=== PATIENT | female | born 1930 | race Hispanic/Latino ===

== ENCOUNTER 2019-05-12 10:11 | Inpatient (IN) | payer MEDICARE ==
[2019-05-12 11:21] LABS: Basophils # (Auto) 0.1 K/mm3 (0.0-0.1); Basophils % (Auto) 0.7 % (0.0-1.8); Eosinophils # (Auto) 0.1 K/mm3 (0.0-0.4); Eosinophils % (Auto) 1.2 % (0.0-4.3); Hematocrit 32.7 % (30.3-42.9); Hemoglobin 11.2 gm/dl (10.1-14.3); Lymphocytes # (Auto) 1.7 K/mm3 (1.2-5.4); Lymphocytes % (Auto) 16.4 % (13.4-35.0); Mean Corpuscular HGB Conc 34 % (30-34); Mean Corpuscular Volume 84 fl (79-97); Monocytes # (Auto) 0.5 K/mm3 (0.0-0.8); Monocytes % (Auto) 4.6 % (0.0-7.3); Platelet Count 263 K/mm3 (140-440); Red Cell Distribution Width 14.1 % (13.2-15.2)
--- NOTE | 2019-05-12 11:39 | Emergency Department Report ---
ED Abdominal Pain HPI - General Chief Complaint: Abdominal Pain Stated Complaint: SORENESS ON BUTTOCKS Time Seen by Provider: 05/12/19 10:52 Source: family, EMS Mode of arrival: Stretcher Limitations: Altered Mental Status - History of Present Illness Initial Comments: 88-year-old female with past medical history of dementia, hypertension, kidney stones requiring surgery, peptic ulcer disease, and chronic fecal incontinence with several months for this possible complaints buttock pain for 2 days. Patient is oriented to self and hospital but not to yaer. She is only able to provided a limited history of present illness. Her daughter/partial medical advisor is at the bedside. Patient has intermittent episodes of complaining of buttock pain but she can't verbalize any further details. By mouth intake reported since yesterday. No reports of vomiting or dysuria. Possible lower abdominal pain as well. Patient wears a diaper due to chronic fecal incontinence. - Related Data Home Medications Medication Instructions Recorded Confirmed Last Taken Benazepril HCl [Lotensin] 20 mg PO DAILY 01/02/18 01/02/18 01/01/18 09:00 Glimepiride [Amaryl] 4 mg PO QAM 01/02/18 01/02/18 01/01/18 09:00 Previous Rx's Medication Instructions Recorded Last Taken Type Acetaminophen [Acetaminophen TAB] 650 mg PO Q4H PRN tablet 01/05/18 Unknown Rx levoFLOXacin [Levaquin TAB] 500 mg PO QDAY #5 tablet 01/05/18 Unknown Rx Allergies Allergy/AdvReac Type Severity Reaction Status Date / Time No Known Allergies Allergy Verified 01/01/18 18:43 ED Review of Systems ROS: Stated complaint: SORENESS ON BUTTOCKS Other details as noted in HPI Comment: All other systems reviewed and negative ED Past Medical Hx - Past Medical History Hx Hypertension: Yes Hx Diabetes: Yes Hx Arthritis: Yes Hx Kidney Stones: Yes (X2 Surgeries) Hx Dementia: Yes Additional medical history: osteoporosis, peptic ulcer, prolapsed bladder - Surgical History Additional Surgical History: kidney stone surgery - Social History Smoking Status: Never Smoker Substance Use Type: None - Medications Home Medications: Home Medications Medication Instructions Recorded Confirmed Last Taken Type Benazepril HCl [Lotensin] 20 mg PO DAILY 01/02/18 01/02/18 01/01/18 09:00 Histo ry Glimepiride [Amaryl] 4 mg PO QAM 01/02/18 01/02/18 01/01/18 09:00 History Acetaminophen [Acetaminophen TAB] 650 mg PO Q4H PRN tablet 01/05/18 Unknown Rx levoFLOXacin [Levaquin TAB] 500 mg PO QDAY #5 tablet 01/05/18 Unknown Rx ED Physical Exam - General Limitations: Altered Mental Status - Other Other exam information: General: No limitations, patient is alert in no acute distress Head exam: Atraumatic, normocephalic Eyes exam: Normal appearance ENT: Moist mucous membrane, normal oropharynx Neck exam: Normal inspection, full range of motion, no meningismus nontender Respiratory exam: Clear to auscultation bilateral, no wheezes, rales, crackles Cardiovascular: Normal rate and rhythm Abdomen: Soft, nondistended, suprapubic tenderness on palpation with normal bowel sounds, no rebound, or guarding Rectal: Redness to buttock area without any skin break. Extremities hemorrhoids noted without any signs of thrombosis or active bleeding. Light brown stool noted in diaper without any melena or hematochezia. 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 ED Course Vital Signs 05/12/19 05/12/19 05/12/19 10:30 12:30 12:52 Temperature 98.7 F Pulse Rate 84 70 Respiratory 20 18 Rate Blood Pressure 180/66 225/79 O2 Sat by Pulse 94 97 Oximetry ED Medical Decision Making - Lab Data Result diagrams: 05/12/19 11:04 05/12/19 11:04 Lab Results 05/12/19 05/12/19 05/12/19 Range/Units 11:04 11:04 12:23 WBC 10.6 (4.5-11.0) K/mm3 RBC 3.90 (3.65-5.03) M/mm3 Hgb 11.2 (10.1-14.3) gm/dl Hct 32.7 (30.3-42.9) % MCV 84 (79-97) fl MCH 29 (28-32) pg MCHC 34 (30-34) % RDW 14.1 (13.2-15.2) % Plt Count 263 (140-440) K/mm3 Lymph % (Auto) 16.4 (13.4-35.0) % [place] % (Auto) 4.6 (0.0-7.3) % Eos % (Auto) 1.2 (0.0-4.3) % Baso % (Auto) 0.7 (0.0-1.8) % Lymph # 1.7 (1.2-5.4) K/mm3 [place] # 0.5 (0.0-0.8) K/mm3 Eos # 0.1 (0.0-0.4) K/mm3 Baso # 0.1 (0.0-0.1) K/mm3 Seg Neutrophils % 77.1 H (40.0-70.0) % Seg Neutrophils # 8.2 H (1.8-7.7) K/mm3 Sodium 137 (137-145) mmol/L Potassium 4.4 (3.6-5.0) mmol/L Chloride 101.6 (98-107) mmol/L Carbon Dioxide 22 (22-30) mmol/L Anion Gap 18 mmol/L BUN 25 H (7-17) mg/dL Creatinine 1.3 H (0.7-1.2) mg/dL Estimated GFR 39 ml/min BUN/Creatinine Ratio 19 % Glucose 234 H (65-100) mg/dL Calcium 9.2 (8.4-10.2) mg/dL Urine Color Red (Yellow) Urine Turbidity Cloudy (Clear) Urine pH 5.0 (5.0-7.0) Ur Specific [place] 1.012 (1.003-1.030) Urine Protein <15 mg/dl (Negative) mg/dL Urine Glucose (UA) 50 (Negative) mg/dL Urine Ketones Neg (Negative) mg/dL Urine Blood Neg (Negative) Urine Nitrite Neg (Negative) Urine Bilirubin Neg (Negative) Urine Urobilinogen < 2.0 (<2.0) mg/dL Ur Leukocyte Esterase Lg (Negative) Urine WBC (Auto) 25.0 H (0.0-6.0) /HPF Urine RBC (Auto) 5.0 (0.0-6.0) /HPF U Epithel Cells (Auto) 1.0 (0-13.0) /HPF Urine Bacteria (Auto) 4+ (Negative) /HPF Urine Mucus 2+ /HPF Urine Yeast (Budding) 1+ /HPF - Radiology Data Radiology results: report reviewed PROCEDURE: CT ABDOMEN PELVIS WO CON TECHNIQUE: CT of the abdomen and pelvis was performed. No IV contrast administered. No oral contrast administered. Axial images and coronal and sagittal reformatted images were obtained. HISTORY: lower abd pain COMPARISON: 09/25/2013 FINDINGS: There are coronary artery calcifications. There is cholelithiasis. There is a 1.7 cm right renal cyst. There are prominent renal pelves, especially on the right. This is unchanged and can reflect chronic UPJ obstruction. 1.4 cm low-density lesion in the right kidney is probably a small cyst but not definitively characterized on noncontrast imaging. There are aortoiliac atherosclerotic calcifications. There is no abdominal aortic aneurysm. There is no evidence for intestinal obstruction. The appendix is normal. There is no abnormal fluid collection seen. There is no free intraperitoneal air. There is mild diverticulosis involving sigmoid colon. There is no acute diverticulitis seen. The bladder is very distended and demonstrates trabeculated margins. This is unchanged. There is stool distending the rectum to 8 cm diameter. I cannot exclude fecal im paction. IMPRESSION: Cholelithiasis. Unchanged prominent renal pelves, especially on the right. This could reflect chronic UPJ obstruction. Distended bladder with trabeculated margins. This is unchanged. Correlate for chronic bladder dysfunction or outlet obstruction. Mild diverticulosis. No acute diverticulitis. Unchanged L3, T10 and T11 mild compression compression deformities. Coronary and aortic atherosclerotic calcifications. - Medical Decision Making ED workup significant for UTI. Patient treated with IV Rocephin. Culture pending. Hospitalist informed permission. Patient's BP was elevated. She did not have her a.m. meds. She did receive Colace 0.1 milligrams - Differential Diagnosis diverticulitis, UTI, dementia, decubitus ulcer, dehydration Critical Care Time: No Critical care attestation.: If time is entered above; I have spent that time in minutes in the direct care of this critically ill patient, excluding procedure time. ED Disposition Clinical Impression: UTI (lower urinary tract infection), Dementia, HTN (hypertension), Diabetes Disposition: OP ADMIT IP TO THIS HOSP Is pt being admited?: Yes Condition: Stable Time of Disposition: 13:26 (Dr briceño/hosp)
[2019-05-12 11:45] LABS: Calcium 9.2 mg/dL (8.4-10.2)
[2019-05-12] MEDS ORDERED: TYLENOL PO ONE (12:36)
[2019-05-12] MEDS ORDERED: CATAPRES PO ONE (12:38)
[2019-05-12 12:51] LABS: Bacteria,Urine 4+ /HPF (Negative); Bilirubin,Urine NEG (Negative); Blood,Urine NEG (Negative); Color,Urine Red (Yellow); Mucus,Urine 2+ /HPF; Protein,Urine <15 mg/dL mg/dL (Negative); Urobilinogen,Urine < 2.0 mg/dL (<2.0)
[2019-05-12] MEDS ORDERED: ROCEPHIN/NS 1 GM/50 ML 1 GM/50 ML BAG IV ONE (12:59)
--- NOTE | 2019-05-12 13:16 | History and Physical Report ---
History of Present Illness Chief complaint: She is weak, and getting more confused History of present illness: 88 YO Female with DM, HTN, PUD, Dementia, Osteoporosis, Nephrolithiasis, OA, Fecal Incontinence presents to ED for evaluation. Pt is confused and unable to provide detailed history. Pt history provided by Daughter, and brother who are at bedside during exam and interview. As per family the patient has experienced increased confusion, and weakness over the past 1 week with persistent symptoms over the same time frame. Pt has become increasingly dependent and is currently unable to independently conduct activities of daily living. Pt requires 5/6 assistance, and is incontinent of bowel and bladder and increased bedbound status with development of sacral DTI. EMS notified and the patient transported to [facility]. Pt seen and evaluated in ED and found to have UTI, ARF, Volume Depletion, and constipation. Pt also found to have Hypertensive Urgency suspected secondary to noncompliance with antihypertensive therapy. No reports of fever, chills, CP, Palpitations, Trauma, BRBPR, Falls, Syncope, Productive co ugh, or recent ill contacts. Pt admitted to [facility] unit and initiated on Iv antibiotic therapy, as well as IVF resuscitation therapy. Prior admission on 01/02/18 reviewed. 35 minutes dedicated to Advance Care planning discussion with patient and family. Past History Past Medical History: arthritis, diabetes, hypertension, other (PUD, Osteoporosis, Nephrolithiasis) Past Surgical History: Other (Renal Stones) Social history: , lives with family. denies: smoking, alcohol abuse, prescription drug abuse Family history: diabetes, hypertension Medications and Allergies Allergies Allergy/AdvReac Type Severity Reaction Status Date / Time No Known Allergies Allergy Verified 01/01/18 18:43 Home Medications Medication Instructions Recorded Confirmed Last Taken Type Benazepril HCl [Lotensin] 20 mg PO DAILY 01/02/18 01/02/18 01/01/18 09:00 History Glimepiride [Amaryl] 4 mg PO QAM 01/02/18 01/02/18 01/01/18 09:00 History Acetaminophen [Acetaminophen TAB] 650 mg PO Q4H PRN tablet 01/05/18 Unknown Rx levoFLOXacin [Levaquin TAB] 500 mg PO QDAY #5 tablet 01/05/18 Unknown Rx Active Meds: Active Medications Ceftriaxone Sodium (Rocephin/Ns 1 Gm/50 Ml) 1 gm in 50 mls @ 100 mls/hr IV ONCE ONE; Protocol Stop: 05/12/19 13:28 Review of Systems ROS unobtainable: due to mental status Exam - Constitutional Vitals: Temp Pulse Resp BP Pulse Ox 98.7 F 70 18 225/79 97 05/12/19 10:30 05/12/19 12:52 05/12/19 12:30 05/12/19 12:52 05/12/19 12:30 General appearance: Present: mild distress, well-nourished - EENT Eyes: Present: PERRL ENT: hearing intact, clear oral mucosa - Neck Neck: Present: supple, normal ROM - Respiratory Respiratory effort: normal Respiratory: bilateral: CTA - Cardiovascular Heart Sounds: Present: S1 & S2. Absent: rub, click - Extremities Extremities: pulses symmetrical, No edema Peripheral Pulses: within normal limits - Abdominal General gastrointestinal: Present: soft, non-tender, non-distended, normal bowel sounds Female genitourinary: Present: normal - Integumentary Integumentary: Present: warm, erythema (Sacral erythema, with mild excoriation.) - Musculoskeletal Musculoskeletal: strength equal bilaterally, generalized weakness - Psychiatric Psychiatric: no appropriate mood/affect, no intact judgment & insight, no memory intact, cooperative, other (pleasantly confused, tangential thinking) - Neurologic Neurologic: CNII-XII intact, moves all extremities Results - Labs CBC & Chem 7: 05/12/19 11:04 05/12/19 11:04 Labs: Abnormal lab results 05/12/19 05/12/19 05/12/19 Range/Units 11:04 11:04 12:23 Seg Neutrophils % 77.1 H (40.0-70.0) % Seg Neutrophils # 8.2 H (1.8-7.7) K/mm3 BUN 25 H (7-17) mg/dL Creatinine 1.3 H (0.7-1.2) mg/dL Glucose 234 H (65-100) mg/dL Urine WBC (Auto) 25.0 H (0.0-6.0) /HPF Assessment and Plan - Patient Problems (1) UTI (lower urinary tract infection) Current Visit: Yes Status: Acute Plan to address problem: Iv antibiotic therapy, CBC, Urinalysis, (2) ARF (acute renal failure) with tubular necrosis Current Visit: Yes Status: Acute Plan to address problem: IVF resuscitation, monitor uop q shift, monitor serum creatnine, urine electrolytes, (3) Debility Current Visit: Yes Status: Acute Plan to address problem: supportive care, Home health at discharge,bedside commode, shower chair, and hospital bed upon discharge, (4) Advance care planning Current Visit: Yes Status: Acute Plan to address problem: Discussed progression of dementia, end of life planning, hospice care, and supportive care plan. 30 minutes. (5) Dementia Current Visit: Yes Status: Acute Qualifiers: Dementia type: Alzheimer's disease Dementia behavioral disturbance: without behavioral disturbance Plan to address problem: supportive care, fall precautions, neuro checks: POA (6) Diabetes Current Visit: Yes Status: Acute Plan to address problem: ADA diet, insulin, accu check, hypoglycemia protocol. (7) Dehydration Current Visit: No Status: Acute Plan to address problem: IVF resuscitation therapy, encourage increased free water intake. (8) Hypertensive urgency, malignant Current Visit: Yes Status: Acute Plan to address problem: Monitor BP q shift, IV hydralazine prn, goal systolic 130-155 (9) Osteoarthritis Current Visit: Yes Status: Acute Plan to address problem: Pain control, supportive care:POA (10) DVT prophylaxis Current Visit: Yes Status: Acute Plan to address problem: SCD to BLE while in bed, prophylactic heparin
[2019-05-12] MEDS ORDERED: TYLENOL PO PRN ×2 (13:18→13:26)
--- NOTE | 2019-05-12 13:21 | Cat Scan Report ---
PROCEDURE: CT ABDOMEN PELVIS WO CON TECHNIQUE: CT of the abdomen and pelvis was performed. No IV contrast administered. No oral contrast administered. Axial images and coronal and sagittal reformatted images were obtained. HISTORY: lower abd pain COMPARISON: 09/25/2013 FINDINGS: There are coronary artery calcifications. There is cholelithiasis. There is a 1.7 cm right renal cyst. There are prominent renal pelves, especially on the right. This is unchanged and can reflect chronic UPJ obstruction. 1.4 cm low-density lesion in the right kidney is probably a small cyst but not definitively character ized on noncontrast imaging. There are aortoiliac atherosclerotic calcifications. There is no abdominal aortic aneurysm. There is no evidence for intestinal obstruction. The appendix is normal. There is no abnormal fluid collection seen. There is no free intraperitoneal air. There is mild diverticulosis involving sigmoid colon. There is no acute diverticulitis seen. The bladder is very distended and demonstrates trabeculated margins. This is unchanged. There is stool distending the rectum to 8 cm diameter. I cannot exclude fecal impaction. IMPRESSION: Cholelithiasis. Unchanged prominent renal pelves, especially on the right. This could reflect chronic UPJ obstruction . Distended bladder with trabeculated margins. This is unchanged. Correlate for chronic bladder dysfunc tion or outlet obstruction. Mild diverticulosis. No acute diverticulitis. Unchanged L3, T10 and T11 mild compression compression deformities. Coronary and aortic atherosclerotic calcifications. This document is electronically signed by Brenda Montanez MD., May 12 2019 01:19:07 PM ET
[2019-05-12] MEDS ORDERED: SODIUM CHLORIDE FLUSH SYRINGE 10 ML IV PRN (13:26)
[2019-05-12] MEDS ORDERED: ZOFRAN IV PRN (13:26)
[2019-05-12] MEDS ORDERED: PROVENTIL IH PRN (13:26)
[2019-05-12] MEDS ORDERED: APRESOLINE IV PRN (13:29)
[2019-05-12] MEDS ORDERED: FLEET MINERAL OIL PR ONE (15:00)
[2019-05-12] MEDS: SODIUM CHLORIDE FLUSH SYRINGE 10 ML IV SCH (21:24)
[2019-05-12] MEDS: NACL 0.45% 1000 ML 1,000 ML IV SCH (21:24)
[2019-05-12] MEDS: SENOKOT S PO SCH (21:24)
[2019-05-13] MEDS ORDERED: FLEET MINERAL OIL PR NR (09:36)
[2019-05-13] MEDS ORDERED: NON-FORMULARY (Benazepril Hcl [Lotensin] 20 MG) PO SCH (10:00)
[2019-05-13] MEDS ORDERED: DULCOLAX PR PRN (10:20)
[2019-05-13] MEDS: ROCEPHIN/NS 1 GM/50 ML 1 GM/50 ML BAG IV SCH (10:43)
[2019-05-13] MEDS: SODIUM CHLORIDE FLUSH SYRINGE 10 ML IV SCH ×2 (10:44→22:59)
[2019-05-13] MEDS: ZESTRIL PO SCH (10:45)
[2019-05-13] MEDS: HumaLOG SUB-Q SCH ×3 (12:33→23:05)
--- NOTE | 2019-05-13 15:11 | Progress Note ---
Assessment and Plan Assessment and plan: 88 YO Female with DM, HTN, PUD, Dementia, Osteoporosis, Nephrolithiasis, OA, Fecal Incontinence presents to ED for evaluation. Pt is confused and unable to provide detailed history. Pt history provided by Daughter, and brother who are at bedside during exam and interview. As per family the patient has experienced increased confusion, and weakness over the past 1 week with persistent symptoms over the same time frame. Pt has become increasingly dependent and is currently unable to independently conduct activities of daily living. Pt requires 5/6 assistance, and is incontinent of bowel and bladder and increased bedbound status with development of sacral DTI. * Pt seen and evaluated in ED and found to have UTI, ARF, Volume Depletion, and constipation. Pt also found to have Hypertensive Urgency suspected secondary to noncompliance with antihypertensive therapy. Although on further discussion with family, this could be secondary to RECTAL PAIN FROM SEVERE CONSTIPATION * Pt admitted to [facility] unit and initiated on Iv antibiotic therapy, as well as IVF resuscitation therapy. Acute Cystitis Hypertensive urgency secondary to abdominal pain Abdominal pain/Acute peritoneal irritation secondary to severe constipation Dementia- Presume baseline per family member present today Severe Constipation Chronic debility Diabetes mellitus type 2 with hyperglycemia Dehydration Osteoarthritis Plan * Continue supportive care with stool disimpaction * Stool softeners * Resume home medications * Gentle hydration * Discussed with family about increasing fiber and also oral fluid intake * On discharge patient will need suppositories and stool softeners prescription * Monitor blood sugar while in house * Fall and aspiration precautions * DVT and GI prophylaxis * Despite discharge in 24 hours History Interval history: Patient seen and examined, family at bedside and reports patient has been battling with constipation for a few weeks now. This has resulted in her develo ping significant pain when going to the bathroom and probably have led to elevated blood pressure on visitation to the ED. Hospitalist Physical - Physical exam Narrative exam: VITAL SIGNS: Reviewed. GENERAL: The patient appeared well nourished and normally developed, Vital signs as documented. HEAD: No signs of head trauma. EYES: Pupils are equal. Extraocular motions intact. EARS: Hearing grossly intact. MOUTH: Oropharynx is normal. NECK: No adenopathy, no JVD. CHEST: Chest with clear breath sounds bilaterally. No wheezes, rales, or rhonchi. CARDIAC: Regular rate and rhythm. S1 and S2, without murmurs, gallops, or rubs. VASCULAR: No Edema. Peripheral pulses normal and equal in all extremities. ABDOMEN: Soft, non tender and non distended. No rebound or guarding, and no masses palpated. Bowel Sounds normal. MUSCULOSKELETAL: Good range of motion of all major joints. Extremities without clubbing, cyanosis or edema. NEUROLOGIC EXAM: Alert and oriented x 2, pleasantly confused and at baseline dementia. No focal sensory or strength deficits. Speech normal. Follows commands. PSYCHIATRIC: Mood normal. SKIN: Sacral erythema, with mild excoriation - Constitutional Vitals: Temp Pulse Resp BP Pulse Ox 97.5 F L 72 18 127/46 91 05/13/19 12:54 05/13/19 12:54 05/13/19 12:54 05/13/19 12:54 05/13/19 12:54 General appearance: Present: mild distress, well-nourished Results - Labs CBC & Chem 7: 05/12/19 11:04 05/12/19 11:04 Labs: Laboratory Last Values WBC 10.6 K/mm3 (4.5-11.0) 05/12/19 11:04 RBC 3.90 M/mm3 (3.65-5.03) 05/12/19 11:04 Hgb 11.2 gm/dl (10.1-14.3) 05/12/19 11:04 Hct 32.7 % (30.3-42.9) 05/12/19 11:04 MCV 84 fl (79-97) 05/12/19 11:04 MCH 29 pg (28-32) 05/12/19 11:04 MCHC 34 % (30-34) 05/12/19 11:04 RDW 14.1 % (13.2-15.2) 05/12/19 11:04 Plt Count 263 K/mm3 (140-440) 05/12/19 11:04 Lymph % (Auto) 16.4 % (13.4-35.0) 05/12/19 11:04 [place] % (Auto) 4.6 % (0.0-7.3) 05/12/19 11:04 Eos % (Auto) 1.2 % (0.0-4.3) 05/12/19 11:04 Baso % (Auto) 0.7 % (0.0-1.8) 05/12/19 11:04 Lymph # 1.7 K/mm3 (1.2-5.4) 05/12/19 11:04 [place] # 0.5 K/mm3 (0.0-0.8) 05/12/19 11:04 Eos # 0.1 K/mm3 (0.0-0.4) 05/12/19 11:04 Baso # 0.1 K/mm3 (0.0-0.1) 05/12/19 11:04 Seg Neutrophils % 77.1 % (40.0-70.0) H 05/12/19 11:04 Seg Neutrophils # 8.2 K/mm3 (1.8-7.7) H 05/12/19 11:04 Sodium 137 mmol/L (137-145) 05/12/19 11:04 Potassium 4.4 mmol/L (3.6-5.0) 05/12/19 11:04 Chloride 101.6 mmol/L (98-107) 05/12/19 11:04 Carbon Dioxide 22 mmol/L (22-30) 05/12/19 11:04 18 mmol/L 05/12/19 11:04 BUN 25 mg/dL (7-17) H 05/12/19 11:04 1.3 mg/dL (0.7-1.2) H 05/12/19 11:04 Estimated GFR 39 ml/min 05/12/19 11:04 19 % 05/12/19 11:04 Glucose 234 mg/dL (65-100) H 05/12/19 11:04 POC Glucose 235 (70-105) H 05/13/19 11:53 Calcium 9.2 mg/dL (8.4-10.2) 05/12/19 11:04 Red (Yellow) 05/12/19 12:23 Cloudy (Clear) 05/12/19 12:23 5.0 (5.0-7.0) 05/12/19 12:23 Ur Specific [place] 1.012 (1.003-1.030) 05/12/19 12:23 <15 mg/dl mg/dL (Negative) 05/12/19 12:23 50 mg/dL (Negative) 05/12/19 12:23 Neg mg/dL (Negative) 05/12/19 12:23 Neg (Negative) 05/12/19 12:23 Neg (Negative) 05/12/19 12:23 Neg (Negative) 05/12/19 12:23 < 2.0 mg/dL (<2.0) 05/12/19 12:23 Ur Leukocyte Esterase Lg (Negative) 05/12/19 12:23 25.0 /HPF (0.0-6.0) H 05/12/19 12:23 5.0 /HPF (0.0-6.0) 05/12/19 12:23 U Epithel Cells (Auto) 1.0 /HPF (0-13.0) 05/12/19 12:23 4+ /HPF (Negative) 05/12/19 12:23 2+ /HPF 05/12/19 12:23 1+ /HPF 05/12/19 12:23 Active Medications - Current Medications Current Medications: Generic Name Dose Route Start Last Admin Trade Name Freq PRN Reason Stop Dose Admin Acetaminophen 650 mg 05/12/19 13:26 Tylenol PO Q4H PRN Pain MILD(1-3)/Fever >100.5/[place]ARSON Albuterol 2.5 mg 05/12/19 13:26 Proventil IH Q4HRT PRN Shortness Of Breath Bisacodyl 10 mg 05/13/19 10:20 Dulcolax UT QDAY PRN Constipation Heparin Sodium (Porcine) 5,000 unit 05/13/19 22:00 Heparin SUB-Q Q12HR SHE[place] Hydralazine HCl 10 mg 05/12/19 13:29 Apresoline IV Q6HR PRN Hypertension Ceftriaxone Sodium 1 gm in 50 mls @ 100 mls/hr 05/13/19 10:00 05/13/19 10:43 Rocephin/Ns 1 Gm/50 Ml IV 100 mls/hr Q24HR [place] Administration Protocol Sodium Chloride 1,000 mls @ 42 mls/hr 05/12/19 14:00 05/12/19 21:24 Nacl 0.45% 1000 Ml IV 42 mls/hr DIRECT SHE[place] Administration Insulin Glargine 12 units 05/13/19 22:00 Lantus SUB-Q QHS SHE[place] Insulin Human Lispro 0 unit 05/13/19 12:26 05/13/19 12:33 Humalog SUB-Q 2 unit ACHS SHE[place]TON Administration Protocol Lisinopril 20 mg 05/13/19 10:00 05/13/19 10:45 Zestril PO 20 mg QDAY SHE[place] Administration Ondansetron HCl 4 mg 05/12/19 13:26 Zofran IV Q8H PRN Nausea And Vomiting Senna/Docusate Sodium 1 tab 05/12/19 22:00 05/12/19 21:24 Senokot S PO 1 tab QHS [place] Administration Sodium Chloride 10 ml 05/12/19 22:00 05/13/19 10:44 Sodium Chloride Flush Syringe 10 Ml IV 10 ml BID [place] Administration Sodium Chloride 10 ml 05/12/19 13:26 Sodium Chloride Flush Syringe 10 Ml IV PRN PRN LINE FLUSH Nutrition/Malnutrition Assess - Dietary Evaluation Nutrition/Malnutrition Findings: Nutrition Notes Start: 05/13/19 12:51 Freq: Status: Active Protocol: Document 05/13/19 12:51 OH (Rec: 05/13/19 13:05 OH [id number]) Nutrition Notes Need for Assessment generated from: MD Order Initial or Follow up Assessment Current Diagnosis Coronary Artery Disease, Diabetes,Hypertension Other Pertinent Diagnosis UTI/ARF/dementia/sacral DTI Current Diet Consistent CHO Labs/Tests K+ 4.4 Cr. 1.3 GLU 234 Ca 9.2 Pertinent Medications Humalog Height 5 ft Weight 71.3 kg [place] Body Weight (kg) 45.45 BMI 30.7 Intake Prior to Admission Fair Weight Status Overweight Subjective/Other Information MD consult. Pt. lying in bed with daughter by her bedside. Per daughter pt consumes soft/ mechanical soft foods due to few teeth. Pt. crying out in pain due to fecal impaction. Pt. consuming more liquids ( juice/milk) rather than food at this time per daughter. Percent of energy/protein needs met: 10/10% Burn Absent Trauma Absent GI Symptoms Constipation Difficulty In Chewing Food Allergy No Current % PO Negligible #1 Nutrition Diagnosis Inadequate oral intake Etiology constipation/fecal impaction/ dementia As Evidenced by Signs and Symptoms poor po intake Diagnosis Progress(for reassessment Continues documentation) Is patient on ventilator? No Is Patient Ambulatory and/or Out of Bed No REE-([place]-St. Jeor-confined to bed) 1284.996 Calculation Used for Recommendations [place]-St Jeor Additional Notes FLUID: 1 mL/kcal PROTEIN: 1-1.2 g/kg (IBW 46 KGS) 46- Nutrition Intervention Change Diet Order: Cont mechnical soft consistent CHO Add Supplement/Snack (indicate name/kcal GLUCERNA BID /protein ) Provides kCal: 440 Provides Protein (gm) 20 Goal #1 PO INTAKE TO TREND >75% at meals Goal #2 ONS initiated and tolerated Anticipated Discharge Needs: Unable to determine at this time Follow-Up By: 05/15/19 Additional Comments F/U po intake/tolerance to ONS
[2019-05-13] MEDS: NACL 0.45% 1000 ML 1,000 ML IV SCH (18:43)
[2019-05-13] MEDS ORDERED: LANTUS SUB-Q SCH (22:00)
[2019-05-13] MEDS: SENOKOT S PO SCH (22:58)
[2019-05-13] MEDS: HEPARIN SUB-Q SCH (22:59)
[2019-05-14] MEDS: HumaLOG SUB-Q SCH ×3 (07:30→16:45)
[2019-05-14 07:58] VITALS: BP 141/44
[2019-05-14] MEDS: ROCEPHIN/NS 1 GM/50 ML 1 GM/50 ML BAG IV SCH (10:03)
[2019-05-14] MEDS: ZESTRIL PO SCH (10:04)
[2019-05-14] MEDS: SODIUM CHLORIDE FLUSH SYRINGE 10 ML IV SCH (10:04)
[2019-05-14] MEDS: HEPARIN SUB-Q SCH (10:04)
--- NOTE | 2019-05-14 12:21 | Discharge Summary ---
Providers - Providers Date of Admission: 05/12/19 15:45 Date of discharge: 05/14/19 Attending physician: APRIL QUINTANILLA 05/12/19 14:02 Consult to Wound/ET Nurse [CONS] Routine Reason For Exam: wound eval 05/12/19 21:05 Consult to Dietitian/Nutrition [CONS] Routine Physician Instructions: Reason For Exam: Reason for Consult: Poor oral intake 05/14/19 09:20 Physical Therapy Evaluation and Treat [CONS] Routine Comment: Reason For Exam: Weakness Primary care physician: SHALA KUMAR Hospitalization Condition: Stable Hospital course: Patient is a 88 yo woman with a history of DM, HTN, PUD, Dementia, Osteoporosis, Nephrolithiasis, OA, Fecal Incontinence who presented to [facility] with increasing AMS/confusion, rectal pains. Pt requires max assistance, incontinent of bowel and bladder and increased bedbound status with development of sacral DTI. Pt seen and evaluated in ED and found to have UTI, ARF, Volume Depletion, and constipation. Pt also found to have Hypertensive Urgency suspected secondary to noncompliance with antihypertensive therapy. Although on further discussion with family, this could be secondary to RECTAL PAIN FROM SEVERE CONSTIPATION Discharge Diagnoses: Sacral Decubitis Ulcer, stage III, poa Functional quadriplegia, poa Acute metabolic encephalopathy, poa Acute Cystitis Hypertensive urgency secondary to abdominal pain Abdominal pain/Acute peritoneal irritation secondary to severe constipation Dementia- Presume baseline per family member present today Severe Constipation Chronic debility Diabetes mellitus type 2 with hyperglycemia Dehydration Osteoarthritis Disposition: DC/TX-06 HOME [facility] Time spent for discharge: 35 mintues Core Measure Documentation - Palliative Care Palliative Care/ Comfort Measures: Not Applicable - Core Measures Any of the following diagnoses?: none - VTE Discharge Requirements Deep Vein Thrombosis/Pulmonary Embolism Present on Admission: No Has pt received <5 days of overlap therapy or INR<2.0: No Anticoagulant overlap therapy prescribed at discharge: No Contraindication No Overlap Therapy order at DC: Not Indicated Exam - Physical Exam Narrative exam: Gen: chronically disable appearing, wdwn, NAD, Awake, Alert, Orientated x 0.5 HEENT: NCAT, EOMI, PERRL, OP Clear Neck: supple, no adenopathy, no thyromegaly, no JVD CVS/Heart: RRR, normal S1S2, pulses present bilaterally Chest/Lungs: CTA B, Symmetrical chest expansion, good air entry bilaterally GI/Abdomen: soft, NTND, good bowel sounds, no guarding or rebound /Bladder: no suprapubic tenderness, no CVA or paraspinal tenderness Extermity/Skin: sacral decubitus ulcer, see wound care pictures Neuro: CN 2-12 grossly intact, no new focal deficits Psych: calm - Constitutional Vitals: Temp Pulse Resp BP Pulse Ox 98.6 F 52 L 16 141/44 99 05/14/19 07:37 05/14/19 07:37 05/14/19 07:37 05/14/19 07:37 05/14/19 07:37 Plan Activity: up only with assistance, fall precautions, other (no strenous activity unless cleared by pvpv) Diet: low salt, diabetic Special Instructions: record daily BP diary, record blood sugar diary Follow up with: SHALA KUMAR MD [Primary Care Provider] - 3-5 Days Prescriptions: Polyethylene Glycol 3350 [Miralax 3350] 17 gm PO QDAY PRN #30 packet PRN Reason: Constipation
== END 2019-05-14 17:30 | disposition home health service (06) | DRG 371 ==
LOC: ED 10:11 → 2B-ACE 15:45
PROVIDERS: ADMIT Internal Medicine; ATTEND Internal Medicine
DX: K65.9 Peritonitis, unspecified (principal); G93.41 Metabolic encephalopathy; L89.153 Pressure ulcer of sacral region, stage 3; N17.0 Acute kidney failure with tubular necrosis; R53.2 Functional quadriplegia; N30.00 Acute cystitis without hematuria; I16.0 Hypertensive urgency; F03.90 Unspecified dementia, unspecified severity, without behavioral disturbance, psychotic disturbance, mood disturbance, and anxiety; R53.81 Other malaise; E11.65 Type 2 diabetes mellitus with hyperglycemia; K59.00 Constipation, unspecified; M81.0 Age-related osteoporosis without current pathological fracture; M19.90 Unspecified osteoarthritis, unspecified site; E86.0 Dehydration; I10 Essential (primary) hypertension; Z87.11 Personal history of peptic ulcer disease; Z91.14 Patient's other noncompliance with medication regimen; Z82.49 Family history of ischemic heart disease and other diseases of the circulatory system; Z83.3 Family history of diabetes mellitus; Z79.899 Other long term (current) drug therapy; Z87.442 Personal history of urinary calculi
CPT/HCPCS: 36415; 74176; 80048; 81001; 82962; 85025; 87086; 96365; 99285; G0378; J0696; J1644; J1815; J7030

== ENCOUNTER 2019-08-07 14:23 | Inpatient (IN) | payer MEDICARE ==
[2019-08-07 15:33] LABS: Basophils # (Auto) 0.1 K/mm3 (0.0-0.1); Basophils % (Auto) 0.6 % (0.0-1.8); Eosinophils # (Auto) 0.1 K/mm3 (0.0-0.4); Eosinophils % (Auto) 0.6 % (0.0-4.3); Hematocrit 38.2 % (30.3-42.9); Hemoglobin 12.6 gm/dl (10.1-14.3); Lymphocytes # (Auto) 2.8 K/mm3 (1.2-5.4); Lymphocytes % (Auto) 21.2 % (13.4-35.0); Mean Corpuscular HGB Conc 33 % (30-34); Mean Corpuscular Volume 86 fl (79-97); Monocytes # (Auto) 0.5 K/mm3 (0.0-0.8); Monocytes % (Auto) 3.7 % (0.0-7.3); Platelet Count 318 K/mm3 (140-440); Red Blood Count 4.45 M/mm3 (3.65-5.03); Red Cell Distribution Width 15.9 % (13.2-15.2)
[2019-08-07 15:56] LABS: BUN/Creatinine Ratio 46; Blood Urea Nitrogen 101 mg/dL (7-17); Calcium 10.3 mg/dL (8.4-10.2); Hemolysis Index 7
[2019-08-07 16:14] LABS: Bacteria,Urine 4+ /HPF (Negative); Bilirubin,Urine NEG (Negative); Blood,Urine NEG (Negative); Color,Urine Yellow (Yellow); Hyaline Casts,Urine 8 /LPF; Mucus,Urine 3+ /HPF; Urobilinogen,Urine < 2.0 mg/dL (<2.0)
[2019-08-07 16:20] LABS: Protein,Urine >500 mg/dL (Negative)
[2019-08-07] MEDS ORDERED: SODIUM CHLORIDE 0.9% 1000 ML 1,000 ML IV ONE (16:36)
[2019-08-07] MEDS ORDERED: cefTRIAXone/NS 1 GM/50 ML 1 GM/50 ML BAG IV ONE (16:37)
[2019-08-07] MEDS ORDERED: ONDANSETRON 4 MG/2 ML INJ IV ONE (16:38)
[2019-08-07] MEDS ORDERED: INSULIN REGULAR, HUMAN 100 UNITS/1 ML IV ONE (16:38)
[2019-08-07] MEDS ORDERED: SODIUM CHLORIDE 0.9% 1000 ML 1,000 ML ONE (16:39)
--- NOTE | 2019-08-07 16:41 | Emergency Department Report ---
- General Chief complaint: Weakness Stated complaint: ABD PAIN/WEAKNESS Time Seen by Provider: 08/07/19 16:30 Source: EMS Mode of arrival: Stretcher Limitations: Altered Mental Status, Physical Limitation - History of Present Illness Initial comments: Patient is 89 years old female with history of diabetes and hypertension. Patient presented to the emergency room accompanied by her daughter stating that her mother is has been having generalized weakness for one week with significant decreased appetite. She stated that her urine is very dark. She denied any chest pain, shortness of breath, cough, fever or chills. MD Complaint: generalized weakness -: week(s) Location: generalized Severity scale (0 -10): 0 Improves with: none Associated Symptoms: denies other symptoms - Related Data Home Medications Medication Instructions Recorded Confirmed Last Taken Benazepril HCl [Lotensin] 20 mg PO DAILY 01/02/18 05/12/19 01/01/18 09:00 Glimepiride [Amaryl] 4 mg PO QAM 01/02/18 05/12/19 01/01/18 09:00 Previous Rx's Medication Instructions Recorded Last Taken Type Polyethylene Glycol 3350 [Miralax 17 gm PO QDAY PRN #30 packet 05/14/19 Unknown Rx 3350] Allergies Allergy/AdvReac Type Severity Reaction Status Date / Time No Known Allergies Allergy Verified 01/01/18 18:43 ED Review of Systems ROS: Stated complaint: ABD PAIN/WEAKNESS Other details as noted in HPI Comment: All other systems reviewed and negative Constitutional: denies: chills, fever Respiratory: denies: cough, orthopnea, shortness of breath, SOB with exertion, wheezing Cardiovascular: denies: chest pain, palpitations Gastrointestinal: nausea. denies: abdominal pain, vomiting, diarrhea, constipation, hematemesis, melena, hematochezia Musculoskeletal: denies: back pain Neurological: weakness (generalized). denies: headache, numbness, paresthesias, confusion ED Past Medical Hx - Past Medical History Hx Hypertension: Yes Hx Diabetes: Yes Hx Arthritis: Yes Hx Kidney Stones: Yes (X2 Surgeries) Hx Dementia: Yes Additional medical history: osteoporosis, peptic ulcer, prolapsed bladder - Surgical History Additional Surgical History: kidney stone surgery - Social History Smoking Status: Never Smoker - Medications Home Medications: Home Medications Medication Instructions Recorded Confirmed Last Taken Type Benazepril HCl [Lotensin] 20 mg PO DAILY 01/02/18 05/12/19 01/01/18 09:00 History Glimepiride [Amaryl] 4 mg PO QAM 01/02/18 05/12/19 01/01/18 09:00 History Polyethylene Glycol 3350 [Miralax 17 gm PO QDAY PRN #30 packet 05/14/19 Unknown Rx 3350] ED Physical Exam - General Limitations: Altered Mental Status, Physical Limitation General appearance: alert, in no apparent distress - Head Head exam: Present: atraumatic, normocephalic, normal inspection - Eye Eye exam: Present: normal appearance, PERRL - ENT ENT exam: Present: mucous membranes dry, TM's normal bilaterally - Neck Neck exam: Present: normal inspection, full ROM. Absent: tenderness, meningismus, lymphadenopathy, thyromegaly - Respiratory Respiratory exam: Present: normal lung sounds bilaterally - Cardiovascular Cardiovascular Exam: Present: regular rate, normal rhythm, normal heart sounds - GI/Abdominal GI/Abdominal exam: Present: soft, normal bowel sounds. Absent: distended, tenderness, guarding, rebound, rigid, organomegaly, mass, bruit, pulsatile mass, hernia - Extremities Exam Extremities exam: Present: normal inspection, full ROM, normal capillary refill. Absent: tenderness, pedal edema, calf tenderness - Back Exam Back exam: Present: normal inspection, full ROM. Absent: CVA tenderness (R), CVA tenderness (L), muscle spasm, vertebral tenderness - Neurological Exam Neurological exam: Present: alert, oriented X3, CN II-XII intact, normal gait - Psychiatric Psychiatric exam: Present: flat affect - Skin Skin exam: Present: dry, intact, normal color ED Course Vital Signs 08/07/19 08/07/19 08/07/19 14:39 15:42 15:43 Temperature 97.8 F Pulse Rate 74 Respiratory 18 15 15 Rate Blood Pressure 130/80 112/59 [Left] O2 Sat by Pulse 98 96 Oximetry ED Medical Decision Making - Lab Data Result diagrams: 08/07/19 15:15 08/07/19 15:15 - EKG Data -: EKG Interpreted by Or EKG shows normal: sinus rhythm Rate: normal - EKG Data Interpretation: no acute changes - Radiology Data Radiology results: report reviewed Chest x-ray is unremarkable. - Medical Decision Making Patient is 89 years old female with history of diabetes and hypertension. Patient presented to the emergency room accompanied by her daughter stating that her mother is has been having generalized weakness for one week with significant decreased appetite. She stated that her urine is very dark. She denied any chest pain, shortness of breath, cough, fever or chills. Patient found to be dehydrated with an acute renal failure secondary to dehydration most likely. Patient also find a significant UTI. Patient received normal saline and Rocephin and Zofran. I discussed the patient with Dr. Presley, he agreed to admit the patient to medical service for further management. Critical care attestation.: If time is entered above; I have spent that time in minutes in the direct care of this critically ill patient, excluding procedure time. ED Disposition Clinical Impression: Acute renal failure, Dehydration, UTI (lower urinary tract infection), Genera lized weakness Disposition: -09 OP ADMIT IP TO THIS HOSP Is pt being admited?: Yes Condition: Stable
[2019-08-07 17:31] LABS: INR 1.14 (0.87-1.13)
[2019-08-07 17:32] LABS: Partial Thromboplastin Time 24.5 Sec. (24.2-36.6)
--- NOTE | 2019-08-07 17:36 | XRay Report ---
CHEST 1 VIEW INDICATION: weakness. COMPARISON: 01/01/2018. FINDINGS: Support devices: None. Heart: Normal. Lungs/Pleura: Lungs are hyperexpanded. There are mild emphysematous changes with upper lung predomina nt bronchiectasis. Retrocardiac density may be atelectatic but is nonspecific. IMPRESSION: 1. Nonspecific somewhat linear retrocardiac left basilar opacities may be atelectatic but are nonspec ific. 2. Emphysematous changes are noted with mild bronchiectasis in the upper lobes. Signer Name: Reji Paul MD Signed: 08/07/2019 5:31 PM Workstation Name: [id number]
--- NOTE | 2019-08-07 18:05 | Cat Scan Report ---
CT HEAD WITHOUT CONTRAST INDICATION / CLINICAL INFORMATION: AMS. TECHNIQUE: All CT scans at this location are performed using CT dose reduction for ALARA by means of automated e xposure control. COMPARISON: None available. FINDINGS: HEMORRHAGE: No evidence of intracranial hemorrhage or extra-axial fluid collection. EXTRA-AXIAL SPACES: Cortical sulci and sylvian fissures are enlarged reflecting a degree of parenchym al volume loss which is within normal limits for the patient's age. Basilar cisterns have an unremark able appearance. VENTRICULAR SYSTEM: The third and lateral ventricles are enlarged reflecting resonance of age related parenchymal volume loss. CEREBRAL PARENCHYMA: Periventricular and deep white matter lucency is observed. This is probably seco ndary to microvascular ischemic change. There is no indication of recent infarction. No areas of ence phalomalacia are identified. MIDLINE SHIFT OR HERNIATION: There is no mass effect. CEREBELLUM / BRAINSTEM: Brainstem and cerebellum have an unremarkable appearance. INTRACRANIAL VESSELS:Calcified atherosclerotic plaque is present along the course of the cavernous se gments of both internal carotid arteries. Similar findings are seen at the distal vertebral arteries. ORBITS: visualized portions of the orbits have an unremarkable appearance. SOFT TISSUES of HEAD: No significant abnormality. CALVARIUM: Evaluation of bone windows reveals no abnormalities. PARANASAL SINUSES / MASTOID AIR CELLS: Paranasal sinuses are free from inflammatory mucosal disease. Mastoid air cells are normally pneumatized. IMPRESSION: 1. Age-related involutional changes of atrophy and microvascular ischemia. 2. No acute intracranial abnormalities. Signer Name: Corona De León MD Signed: 08/07/2019 6:00 PM Workstation Name: [id number]
[2019-08-08] MEDS ORDERED: HYDROmorphone 1 MG/1 ML INJ IV PRN (00:53)
[2019-08-08] MEDS ORDERED: METOCLOPRAMIDE 10 MG/2 ML INJ IV PRN (00:53)
[2019-08-08] MEDS ORDERED: ONDANSETRON 4 MG/2 ML INJ IV PRN (00:53)
[2019-08-08] MEDS ORDERED: oxyCODONE /ACETAMINOPHEN 5-325MG TAB PO PRN (00:53)
[2019-08-08] MEDS ORDERED: ACETAMINOPHEN 325 MG TAB PO PRN (00:53)
--- NOTE | 2019-08-08 00:56 | Event Note ---
Date: 08/07/19 See H/p in reports TUNG UTI
--- NOTE | 2019-08-08 01:13 | History and Physical Report ---
CHIEF COMPLAINT: 1. Decreased p.o. intake. 2. Generalized weakness for one week. HISTORY OF PRESENT ILLNESS: The patient is an 89-year-old female with history of hypertension and diabetes, presents with a very poor p.o. intake and generalized weakness for one week. Also, the patient has been having dysuria. Low-grade fever. No chills. No cough. No chest pain. No altered sensorium. PAST MEDICAL HISTORY: Significant for hypertension, diabetes, arthritis, and kidney stones. PAST SURGICAL HISTORY: Significant for kidney stone surgery. SOCIAL HISTORY: Significant for does not smoke. No alcohol. FAMILY HISTORY: Hypertension. REVIEW OF SYSTEMS: Significant for poor p.o. intake and generalized weakness. Otherwise, 14-point review of systems negative. PHYSICAL EXAMINATION: GENERAL: Elderly female, cooperative during examination. VITAL SIGNS: Blood pressure is 121/62, temperature is 97.4, pulse is 77, respirations are 14. HEENT: Unremarkable. Pupils equal and reactive. NECK: Supple, no lymphadenopathy, no thyromegaly. LUNGS: Clear to auscultation and percussion. Good air entry. CARDIOVASCULAR: S1, S2 heard. No gallop, no murmur, no rub. Apical impulse in left fifth intercostal space and midclavicular line. ABDOMEN: Soft and benign. No hepatosplenomegaly. No guarding, no rigidity. Hernial orifices are normal. EXTREMITIES: Good pedal pulses. No pedal edema. CENTRAL NERVOUS SYSTEM: Alert and oriented x 3. Nonfocal findings. LABORATORY DATA: Significant for white count of 13,000, H and H is 12.6 and 38.2, platelet count is 318,000. Sodium is 144, potassium is 5.5, BUN and creatinine is 101 and 2.2. BNP is 937. Urine shows 133 wbc's. EKG was normal sinus rhythm, heart rate of 72 per minute. Chest x-ray was no acute findings. Nonspecific somewhat linear retrocardiac base opacities, may be atelectatic but are nonspecific. Emphysematous changes noted with mild bronchiectasis in the upper lobe. DIAGNOSTIC DATA: Head CT was age-related, involutional changes of atrophy and microvascular ischemia. No acute intracranial abnormalities. ASSESSMENT AND PLAN: 1. Acute kidney injury. The patient initiated on IV fluids. Nephrology consult requested. Secondary to acute tubular necrosis. 2. Urinary tract infection. The patient initiated on IV Rocephin 1 gram IV piggyback q. 24 pending urine cultures. 3. Hypertension. Continue antihypertensives. 4. Hyperkalemia, treated with calcium gluconate and Kayexalate. 5. Type 2 diabetes. Accu-Cheks a.c. and at bedtime coverage. 6. Humalog. Check hemoglobin A1c. 7. Deep venous thrombosis prophylaxis, heparin 5000 q. 12. JOB# [id number] VSM/NTS
[2019-08-08] MEDS: HEPARIN 5,000 UNIT/1 ML VIAL SUB-Q SCH ×3 (01:52→21:51)
[2019-08-08] MEDS: SODIUM CHLORIDE 0.9% 1000 ML 1,000 ML IV SCH ×2 (01:52→17:21)
[2019-08-08] MEDS: INSULIN LISPRO 100 UNIT/ML SUB-Q SCH ×4 (08:34→21:51)
[2019-08-08] MEDS: cefTRIAXone/NS 1 GM/50 ML 1 GM/50 ML BAG IV SCH (10:15)
[2019-08-08] MEDS: FAMOTIDINE 20 MG TAB PO SCH (10:15)
--- NOTE | 2019-08-08 17:28 | Consultation ---
History of Present Illness - Reason for Consult acute renal failure - History of Present Illness 89 y/o elderly, frail, Female with h/o HTN, DM, and dementia, presented to the ED secondary to altered mental status, decreased PO intake and progressively worsening weakness over the past 2 weeks. Patient is not a good historian, and her daughter was at bedside during my examination, providing the majority of the history. Nephrology consulted secondary to TUNG. Past History Past Medical History: diabetes, hypertension, hyperlipidemia, other (dementia ) Past Surgical History: Other (nephrolithotomy ) Social history: no significant social history Family history: hypertension Medications and Allergies Allergies Allergy/AdvReac Type Severity Reaction Status Date / Time No Known Allergies Allergy Verified 01/01/18 18:43 Home Medications Medication Instructions Recorded Confirmed Last Taken Type Benazepril HCl [Lotensin] 20 mg PO DAILY 01/02/18 08/07/19 08/07/19 History Glimepiride [Amaryl] 4 mg PO QAM 01/02/18 08/07/19 08/07/19 History Active Meds: Active Medications Acetaminophen (Tylenol) 650 mg PO Q4H PRN PRN Reason: Pain MILD(1-3)/Fever >100.5/LARSON Famotidine (Pepcid) 20 mg PO QAM SHE[place] Last Admin: 08/08/19 10:15 Dose: 20 mg Documented by: Heparin Sodium (Porcine) (Heparin) 5,000 unit SUB-Q Q12HR SHE[place] Last Admin: 08/08/19 10:14 Dose: 5,000 unit Documented by: Hydromorphone HCl (Dilaudid) 0.5 mg IV Q3H PRN PRN Reason: Pain , Severe (7-10) Sodium Chloride (Nacl 0.9% 1000 Ml) 1,000 mls @ 75 mls/hr IV DIRECT SHE[place] Last Admin: 08/08/19 17:21 Dose: 75 mls/hr Documented by: Ceftriaxone Sodium (Rocephin/Ns 1 Gm/50 Ml) 1 gm in 50 mls @ 100 mls/hr IV Q24HR SHE[place]; Protocol Last Infusion: 08/08/19 10:45 Dose: Infused Documented by: Insulin Human Lispro (Humalog) 0 unit SUB-Q ACHS SHELTON; Protocol Last Admin: 08/08/19 17:17 Dose: 2 unit Documented by: Metoclopramide HCl (Reglan) 5 mg IV Q6H PRN PRN Reason: Nausea And Vomiting Ondansetron HCl (Zofran) 4 mg IV Q8H PRN PRN Reason: Nausea And Vomiting Oxycodone/Acetaminophen (Percocet 5/325) 1 tab PO Q6H PRN PRN Reason: Pain, Moderate (4-6) Sodium Chloride (Sodium Chloride Flush Syringe 10 Ml) 10 ml IV BID SHE[place]TON Last Admin: 08/08/19 10:15 Dose: 10 ml Documented by: Sodium Chloride (Sodium Chloride Flush Syringe 10 Ml) 10 ml IV PRN PRN PRN Reason: LINE FLUSH Last Admin: 08/08/19 01:58 Dose: 10 ml Documented by: Review of Systems Constitutional: fatigue, weakness, poor appetite Exam - Vital Signs Vital signs: Vital Signs Resp BP 18 130/80 08/07/19 14:39 08/07/19 14:39 - General Appearance General appearance: appears stated age, chronically ill, fatigue, frail EENT: ATNC, PERRL Neck: Present: neck supple, trachea midline Respiratory: Clear to Ascultation, Normal Exam Heart: regular, S1S2 Gastrointestinal: Present: normal, normoactive bowel sounds Integumentary: no rash, warm and dry Neurologic: no focal deficit Psychiatric: cooperative Results - Lab Results 08/07/19 15:15 08/07/19 15:15 Most recent lab results Calcium 10.3 mg/dL (8.4-10.2) H 08/07/19 15:15 Assessment and Plan - Patient Problems (1) Acute renal failure Current Visit: Yes Status: Acute Plan to address problem: Agree with current management. Would recommend IVF at 75 cc/hr. Ensure that antibiotics are dosed appropriately for decreased renal function. (2) Hyperkalemia Current Visit: No Status: Acute Plan to address problem: IVF to increase distal sodium delivery, which will help in augmenting potassium excretion. (3) Hypertensive chronic kidney disease with stage 1 through stage 4 chronic kidney disease, or unspecified chronic kidney disease Current Visit: Yes Status: Chronic Plan to address problem: Monitor blood pressures. Would recommend holding benazepril in the setting of TUNG and hyperkalemia. (4) Type 2 diabetes mellitus with diabetic chronic kidney disease Current Visit: Yes Status: Acute Qualifiers: Diabetes mellitus long term care social worker insulin use: unspecified fdc insulin use status Chronic kidney disease stage: stage 3 (moderate) Qualified Code(s): E11.22 - Type 2 diabetes mellitus with diabetic chronic kidney disease; N18.3 - Chronic kidney disease, stage 3 (moderate) Plan to address problem: DM management per primary attending. (5) UTI (lower urinary tract infection) Current Visit: Yes Status: Acute Plan to address problem: Antibiotics per primary team.
--- NOTE | 2019-08-08 18:46 | Progress Note ---
Assessment and Plan Assessment and plan: --Acute kidney injury; vasomotor nephropathy mild improvement, Gentle hydration, monitor renal function, avoid nephrotoxins, nephrology following --Failure to thrive; multifactorial Nutrition consult, dietary supplements, diet as tolerated --Type 2 diabetes mellitus; Accu-Chek sliding scale coverage ADA diet, insulin as needed --Urinary tract infection; empiric antibiotics Follow cultures, ID evaluation if needed -- hypertension; moderate control Continue current antihypertensives and when necessary medications --DVT prophylaxis; Lovenox --Full CODE STATUS Physical therapy occupational therapy Plan of care Reviewed with the patient, her daughters at the bedside and her nurse DC planning per case management Possible discharge home with home health tomorrow if stable. Patient's daughter refused rehabilitation/SNF placement History Interval history: Patient seen and examined medical records reviewed Elderly frail looking female patient in emaciated ,cachectic Not in acute distress Vital signs noted Hospitalist Physical - Constitutional Vitals: Temp Pulse Resp BP Pulse Ox 97.5 F L 74 18 127/48 95 08/08/19 13:54 08/08/19 13:54 08/08/19 13:54 08/08/19 13:54 08/08/19 13:54 General appearance: Present: no acute distress, cachectic, disheveled - EENT Eyes: Present: PERRL, EOM intact - Neck Neck: Present: supple, normal ROM - Respiratory Respiratory effort: normal Respiratory: bilateral: diminished, negative: rales, rhonchi, wheezing - Cardiovascular Rhythm: regular Heart Sounds: Present: S1 & S2 - Extremities Extremities: no ischemia, No edema - Abdominal General gastrointestinal: soft, non-tender, non-distended, normal bowel sounds - Integumentary Integumentary: Present: clear, warm - Psychiatric Psychiatric: appropriate mood/affect, cooperative - Neurologic Neurologic: moves all extremities Results - Labs CBC & Chem 7: 08/09/19 03:35 08/09/19 03:35 Labs: Laboratory Last Values WBC 13.0 K/mm3 (4.5-11.0) H 08/07/19 15:15 RBC 4.45 M/mm3 (3.65-5.03) 08/07/19 15:15 Hgb 12.6 gm/dl (10.1-14.3) 08/07/19 15:15 Hct 38.2 % (30.3-42.9) 08/07/19 15:15 MCV 86 fl (79-97) 08/07/19 15:15 MCH 28 pg (28-32) 08/07/19 15:15 MCHC 33 % (30-34) 08/07/19 15:15 RDW 15.9 % (13.2-15.2) H 08/07/19 15:15 Plt Count 318 K/mm3 (140-440) 08/07/19 15:15 Lymph % (Auto) 21.2 % (13.4-35.0) 08/07/19 15:15 [place] % (Auto) 3.7 % (0.0-7.3) 08/07/19 15:15 Eos % (Auto) 0.6 % (0.0-4.3) 08/07/19 15:15 Baso % (Auto) 0.6 % (0.0-1.8) 08/07/19 15:15 Lymph # 2.8 K/mm3 (1.2-5.4) 08/07/19 15:15 [place] # 0.5 K/mm3 (0.0-0.8) 08/07/19 15:15 Eos # 0.1 K/mm3 (0.0-0.4) 08/07/19 15:15 Baso # 0.1 K/mm3 (0.0-0.1) 08/07/19 15:15 Seg Neutrophils % 73.9 % (40.0-70.0) H 08/07/19 15:15 Seg Neutrophils # 9.6 K/mm3 (1.8-7.7) H 08/07/19 15:15 PT 14.3 Sec. (12.2-14.9) 08/07/19 16:56 INR 1.14 (0.87-1.13) H 08/07/19 16:56 APTT 24.5 Sec. (24.2-36.6) 08/07/19 16:56 Sodium 144 mmol/L (137-145) 08/07/19 15:15 Potassium 5.5 mmol/L (3.6-5.0) H 08/07/19 15:15 Chloride 110.7 mmol/L (98-107) H 08/07/19 15:15 Carbon Dioxide 18 mmol/L (22-30) L 08/07/19 15:15 21 mmol/L 08/07/19 15:15 BUN 101 mg/dL (7-17) H 08/07/19 15:15 2.2 mg/dL (0.7-1.2) H 08/07/19 15:15 Estimated GFR 21 ml/min 08/07/19 15:15 46 % 08/07/19 15:15 Glucose 305 mg/dL (65-100) H 08/07/19 15:15 POC Glucose 184 (70-105) H 08/08/19 16:37 8.4 % (4-6) H 08/08/19 04:53 Calcium 10.3 mg/dL (8.4-10.2) H 08/07/19 15:15 < 0.010 ng/mL (0.00-0.029) 08/07/19 20:41 NT-Pro-B Natriuret Pep 937.1 pg/mL (0-900) H 08/07/19 16:56 Yellow (Yellow) 08/07/19 16:02 Turbid (Clear) 08/07/19 16:02 8.0 (5.0-7.0) H 08/07/19 16:02 Ur Specific [place] 1.013 (1.003-1.030) 08/07/19 16:02 >500 mg/dL (Negative) 08/07/19 16:02 Neg mg/dL (Negative) 08/07/19 16:02 Tr mg/dL (Negative) 08/07/19 16:02 Neg (Negative) 08/07/19 16:02 Neg (Negative) 08/07/19 16:02 Neg (Negative) 08/07/19 16:02 < 2.0 mg/dL (<2.0) 08/07/19 16:02 Ur Leukocyte Esterase Mod (Negative) 08/07/19 16:02 133.0 /HPF (0.0-6.0) H 08/07/19 16:02 9.0 /HPF (0.0-6.0) 08/07/19 16:02 U Epithel Cells (Auto) 2.0 /HPF (0-13.0) 08/07/19 16:02 4+ /HPF (Negative) 08/07/19 16:02 3+ /HPF 08/07/19 16:02 Hyaline Casts 8 /LPF 08/07/19 16:02 3+ /HPF 08/07/19 16:02 3+ /HPF 08/07/19 16:02 Active Medications - Current Medications Current Medications: Generic Name Dose Route Start Last Admin Trade Name Freq PRN Reason Stop Dose Admin Acetaminophen 650 mg 08/08/19 00:53 Tylenol PO Q4H PRN Pain MILD(1-3)/Fever >100.5/[place]SON Famotidine 20 mg 08/08/19 10:00 08/08/19 10:15 Pepcid PO 20 mg QAM SEHLTON Administration Heparin Sodium (Porcine) 5,000 unit 08/08/19 01:15 08/08/19 10:14 Heparin SUB-Q 5,000 unit Q12HR SHELTON Administration Hydromorphone HCl 0.5 mg 08/08/19 00:53 Dilaudid IV Q3H PRN Pain , Severe (7-10) Sodium Chloride 1,000 mls @ 75 mls/hr 08/08/19 01:00 08/08/19 17:21 Nacl 0.9% 1000 Ml IV 75 mls/hr DIRECT SHELTON Administration Ceftriaxone Sodium 1 gm in 50 mls @ 100 mls/hr 08/08/19 10:00 08/08/19 10:45 Rocephin/Ns 1 Gm/50 Ml IV Infused Q24HR SHELTON Infusion Protocol Insulin Human Lispro 0 unit 08/08/19 07:30 08/08/19 17:17 Humalog SUB-Q 2 unit ACHS SHELTON Administration Protocol Metoclopramide HCl 5 mg 08/08/19 00:53 Reglan IV Q6H PRN Nausea And Vomiting Ondansetron HCl 4 mg 08/08/19 00:53 Zofran IV Q8H PRN Nausea And Vomiting Oxycodone/Acetaminophen 1 tab 08/08/19 00:53 Percocet 5/325 PO Q6H PRN Pain, Moderate (4-6) Sodium Chloride 10 ml 08/08/19 10:00 08/08/19 10:15 Sodium Chloride Flush Syringe 10 Ml IV 10 ml BID SHELTON Administration Sodium Chloride 10 ml 08/08/19 00:53 08/08/19 01:58 Sodium Chloride Flush Syringe 10 Ml IV 10 ml PRN PRN Administration LINE FLUSH Nutrition/Malnutrition Assess - Dietary Evaluation Nutrition/Malnutrition Findings: Nutrition Notes Start: 08/08/19 10:23 Freq: Status: Active Protocol: Document 08/08/19 10:24 PS (Rec: 08/08/19 10:47 PS [id number]) Co-Sign 08/08/19 10:24 LP Nutrition Notes 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 2.2 BUN 101 K 5.5 ProBNP 937.1 Ca 10.3 Pertinent Medications Reviewed Height 5 ft 1 in Weight 68.039 kg [place] Body Weight (kg) 47.72 BMI 28.3 Intake Prior to Admission Poor Weight change and time frame 41 kg lost in 3 years. 37% wt. loss in 3 years. Weight Status Overweight Subjective/Other Information Nurse consult for difficulty chewing. Pt. has not been eating well due to no appetite for about 1 week. Pt. daughter states she would try to feed her, but would only take small bites and not eat all of it. Pt. experiences difficulty in chewing. Pt. drinks glucerna at home daily. Pt. had no recent wt loss, but wt gain, possibly due to uncontrolled diabetes. Pt. daughter states her wt. was 109 kg in 2016. Currently 68. 039 kg. Burn Absent Trauma Absent Minimum of two criteria No #1 Nutrition Diagnosis Inadequate energy intake Etiology difficulty chewing and no appetite As Evidenced by Signs and Symptoms decrease PO intake for a week Is patient on ventilator? No Is Patient Ambulatory and/or Out of Bed Yes REE-([facility]-[facility]. Jeor-ambulatory/OOB) [ 1355.601 NUTR.MSJOOB] Calculation Used for Recommendations [facility] or Additional Notes Protein: 68-82 g (1-1.2g/kg) Fluids: 1355 ml (1ml/kcal) Nutrition Intervention Change Diet Order: Mechanical Soft Cardiac Consistent Carb Add Supplement/Snack (indicate name/kcal Glucerna (chocolate and /protein ) vanilla) BID Provides kCal: 440 Provides Protein (gm) 20 Goal #1 Meet 80% energy/protein needs. Anticipated Discharge Needs: Mechanical Soft Cardiac Consistent diet and ONS BID Follow-Up By: 08/12/19 Additional Comments Follow up for energy/protein intakes
[2019-08-08 20:17] LABS: Calcium 9.4 mg/dL (8.4-10.2)
[2019-08-09 04:29] LABS: Basophils # (Auto) 0.1 K/mm3 (0.0-0.1); Basophils % (Auto) 0.7 % (0.0-1.8); Eosinophils # (Auto) 0.2 K/mm3 (0.0-0.4); Eosinophils % (Auto) 2.1 % (0.0-4.3); Hematocrit 36.3 % (30.3-42.9); Hemoglobin 11.6 gm/dl (10.1-14.3); Lymphocytes # (Auto) 2.8 K/mm3 (1.2-5.4); Lymphocytes % (Auto) 29.8 % (13.4-35.0); Mean Corpuscular HGB Conc 32 % (30-34); Mean Corpuscular Volume 86 fl (79-97); Monocytes # (Auto) 0.5 K/mm3 (0.0-0.8); Monocytes % (Auto) 5.1 % (0.0-7.3); Platelet Count 247 K/mm3 (140-440); Red Blood Count 4.21 M/mm3 (3.65-5.03); Red Cell Distribution Width 16.4 % (13.2-15.2)
[2019-08-09 04:52] LABS: Albumin 3.4 g/dL (3.9-5); Calcium 9.1 mg/dL (8.4-10.2)
[2019-08-09] MEDS: SODIUM CHLORIDE 0.9% 1000 ML 1,000 ML IV SCH (06:52)
[2019-08-09] MEDS: INSULIN LISPRO 100 UNIT/ML SUB-Q SCH ×4 (08:13→21:41)
--- NOTE | 2019-08-09 09:02 | Progress Note ---
Assessment and Plan - Patient Problems (1) Acute renal failure Current Visit: Yes Status: Acute Plan to address problem: Agree with current management. Would recommend IVF at 75 cc/hr. In the setting of hypernatremia and worsening hyperchloremic metabolic acidosis, will switch fluids to D5W Ensure that antibiotics are dosed appropriately for decreased renal function. (2) Hyperkalemia Current Visit: No Status: Acute Plan to address problem: Levels improved this am. (3) Hypertensive chronic kidney disease with stage 1 through stage 4 chronic kidney disease, or unspecified chronic kidney disease Current Visit: Yes Status: Chronic Plan to address problem: Monitor blood pressures. Would recommend holding benazepril in the setting of TUNG and hyperkalemia. (4) Type 2 diabetes mellitus with diabetic chronic kidney disease Current Visit: Yes Status: Acute Qualifiers: Diabetes mellitus rodent exterminator insulin use: unspecified rodent exterminator insulin use status Chronic kidney disease stage: stage 3 (moderate) Qualified Code(s): E11.22 - Type 2 diabetes mellitus with diabetic chronic kidney disease; N18.3 - Chronic kidney disease, stage 3 (moderate) Plan to address problem: DM management per primary attending. (5) UTI (lower urinary tract infection) Current Visit: Yes Status: Acute Plan to address problem: Antibiotics per primary team. Subjective Date of service: 08/09/19 Interval history: No acute issues overnight. On NS at 75 cc/hr, with renal function showing slow improvement overnight. Objective - Vital Signs Vital signs: Vital Signs - 12hr 08/08/19 08/08/19 08/09/19 22:09 23:46 02:50 Temperature 98.5 F Pulse Rate 69 66 Respiratory 18 Rate Blood Pressure 173/70 O2 Sat by Pulse 94 Oximetry 08/09/19 08/09/19 03:17 07:40 Temperature 98.0 F Pulse Rate 67 67 Respiratory 18 Rate Blood Pressure 133/60 O2 Sat by Pulse 94 95 Oximetry - General Appearance General appearance: well-developed, well-nourished, appears stated age EENT: ATNC, PERRL Neck: no JVD, no thyromegaly Respiratory: Present: Clear to Ascultation Cardiology: regular, S1S2 Gastrointestinal: normal, normoactive bowel sounds Integumentary: no rash, warm and dry Neurologic: no focal deficit Psychiatric: cooperative - Lab 08/09/19 03:35 08/09/19 03:35 Most recent lab results Calcium 9.1 mg/dL (8.4-10.2) 08/09/19 03:35 - Allied health notes Allied health notes reviewed: nursing Medications & Allergies - Medications Allergies/Adverse Reactions: Allergies No Known Allergies Allergy (Verified 01/01/18 18:43) Home Medications: Home Medications Medication Instructions Recorded Confirmed Last Taken Type Benazepril HCl [Lotensin] 20 mg PO DAILY 01/02/18 08/07/19 08/07/19 History Glimepiride [Amaryl] 4 mg PO QAM 01/02/18 08/07/19 08/07/19 History Active Medications: Generic Name Dose Route Start Last Admin Trade Name Freq PRN Reason Stop Dose Admin Acetaminophen 650 mg 08/08/19 00:53 Tylenol PO Q4H PRN Pain MILD(1-3)/Fever >100.5/[place]SON Famotidine 20 mg 08/08/19 10:00 08/08/19 10:15 Pepcid PO 20 mg QAM SHELTON Administration Heparin Sodium (Porcine) 5,000 unit 08/08/19 01:15 08/08/19 21:51 Heparin SUB-Q 5,000 unit Q12HR SHE[place] Administration Hydromorphone HCl 0.5 mg 08/08/19 00:53 Dilaudid IV Q3H PRN Pain , Severe (7-10) Sodium Chloride 1,000 mls @ 75 mls/hr 08/08/19 01:00 08/09/19 06:52 Nacl 0.9% 1000 Ml IV 75 mls/hr DIRECT SHELTON Administration Ceftriaxone Sodium 1 gm in 50 mls @ 100 mls/hr 08/08/19 10:00 08/08/19 10:45 Rocephin/Ns 1 Gm/50 Ml IV Infused Q24HR SHE[facility] Infusion Protocol Insulin Human Lispro 0 unit 08/08/19 07:30 08/09/19 08:13 Humalog SUB-Q Not Given ACHS SHELTON Protocol Metoclopramide HCl 5 mg 08/08/19 00:53 Reglan IV Q6H PRN Nausea And Vomiting Ondansetron HCl 4 mg 08/08/19 00:53 Zofran IV Q8H PRN Nausea And Vomiting Oxycodone/Acetaminophen 1 tab 08/08/19 00:53 Percocet 5/325 PO Q6H PRN Pain, Moderate (4-6) Sodium Chloride 10 ml 08/08/19 10:00 08/08/19 21:51 Sodium Chloride Flush Syringe 10 Ml IV 10 ml BID SHEL[place] Administration Sodium Chloride 10 ml 08/08/19 00:53 08/08/19 01:58 Sodium Chloride Flush Syringe 10 Ml IV 10 ml PRN PRN Administration LINE FLUSH
[2019-08-09] MEDS: cefTRIAXone/NS 1 GM/50 ML 1 GM/50 ML BAG IV SCH (09:20)
[2019-08-09] MEDS: HEPARIN 5,000 UNIT/1 ML VIAL SUB-Q SCH ×2 (09:22→21:12)
[2019-08-09] MEDS: FAMOTIDINE 20 MG TAB PO SCH (09:22)
[2019-08-09] MEDS: DEXTROSE 5% IN WATER 1,000 ML IV SCH ×2 (09:27→23:15)
[2019-08-09 09:50] LABS: Chloride, Urine 87.6 mmolL (110-250); Creatinine,Urine 17.2 mg/dL (0.1-20.0)
--- NOTE | 2019-08-09 15:38 | Ultrasound Report ---
ULTRASOUND RENAL INDICATION: TUNG COMPARISON: CT abdomen and pelvis 05/12/2019, report unavailable. FINDINGS: RIGHT KIDNEY: Size: 9.5 cm. Echogenicity: Normal. Cortical thickness: Normal. Stones: In the lower pole a possible 7 mm calculus is seen. This was not obvious on prior CT Hydronephrosis: No calyceal dilatation is seen but as on prior CT the renal pelvis is prominent. Cyst or mass: None. LEFT KIDNEY: Size: 9.4 cm. Echogenicity: Normal. Cortical thickness: Some areas of focal thinning are noted. Stones: Possible small calculus is seen in the midportion measuring 4 mm which was not seen previousl y on CT. Hydronephrosis: No calyceal dilatation is seen but moderate prominence of the renal pelvis is again n oted as on prior CT. Cyst or mass: Probable small cyst is noted in the upper pole measuring 11 mm. Urinary Bladder: Dependently in the posterior aspect of the bladder there is soft tissue echogenicity . This could represent moderate dependent debris and appears to layer. However, wall thickening canno t be excluded. The technologist reported no vascularity is seen but one image shows a strong suggesti on of vascularity at least part of this area. Free Fluid: None. Additional Findings: None. IMPRESSION: 1. Possible mild bilateral nephrolithiasis without acute change seen 2. Bilateral renal pelvis prominence is unchanged from prior CT 3. Probable small left renal cyst 4. Unusual appearance of the urinary bladder. In the posterior aspect there is dependent debris and/o r wall thickening. Further evaluation is suggested. Signer Name: Naren Davis MD Signed: 08/09/2019 3:34 PM Workstation Name: [id number]
--- NOTE | 2019-08-09 20:10 | Progress Note ---
Assessment and Plan Assessment and plan: --Failure to thrive; multifactorial Nutrition consult, dietary supplements, diet as tolerated --Type 2 diabetes mellitus; Accu-Chek sliding scale coverage ADA diet, insulin as needed --Urinary tract infection; empiric antibiotics Follow cultures, ID evaluation if needed --Acute kidney injury; vasomotor nephropathy mild improvement, Gentle hydration, monitor renal function, avoid nephrotoxins, nephrology following -- hypertension; moderate control Continue current antihypertensives and when necessary medications --DVT prophylaxis; Lovenox --Full CODE STATUS Physical therapy occupational therapy Plan of care Reviewed with the patient, her daughters at the bedside and her nurse DC planning per case management Possible discharge home with home health tomorrow if stable. History Interval history: Patient seen and examined medical records reviewed Patient feels slightly better No new complaints, poor oral intake Tolerating nutrition supplements Afebrile vital signs noted Hospitalist Physical - Constitutional Vitals: Temp Pulse Resp BP Pulse Ox 97.8 F 69 16 117/48 96 08/09/19 19:27 08/09/19 19:27 08/09/19 19:27 08/09/19 19:27 08/09/19 19:27 General appearance: Present: no acute distress, cachectic, other (frail) - EENT Eyes: Present: PERRL, EOM intact - Neck Neck: Present: supple, normal ROM - Respiratory Respiratory effort: normal Respiratory: bilateral: diminished, negative: rales, rhonchi, wheezing - Cardiovascular Rhythm: regular Heart Sounds: Present: S1 & S2 - Extremities Extremities: no ischemia, No edema - Abdominal General gastrointestinal: soft, non-tender, non-distended, normal bowel sounds - Integumentary Integumentary: Present: clear, warm - Psychiatric Psychiatric: cooperative, other (weak) - Neurologic Neurologic: moves all extremities Results - Labs CBC & Chem 7: 08/09/19 03:35 08/09/19 03:35 Labs: Laboratory Last Values WBC 9.4 K/mm3 (4.5-11.0) 08/09/19 03:35 RBC 4.21 M/mm3 (3.65-5.03) 08/09/19 03:35 Hgb 11.6 gm/dl (10.1-14.3) 08/09/19 03:35 Hct 36.3 % (30.3-42.9) 08/09/19 03:35 MCV 86 fl (79-97) 08/09/19 03:35 MCH 28 pg (28-32) 08/09/19 03:35 MCHC 32 % (30-34) 08/09/19 03:35 RDW 16.4 % (13.2-15.2) H 08/09/19 03:35 Plt Count 247 K/mm3 (140-440) 08/09/19 03:35 Lymph % (Auto) 29.8 % (13.4-35.0) 08/09/19 03:35 [place] % (Auto) 5.1 % (0.0-7.3) 08/09/19 03:35 Eos % (Auto) 2.1 % (0.0-4.3) 08/09/19 03:35 Baso % (Auto) 0.7 % (0.0-1.8) 08/09/19 03:35 Lymph # 2.8 K/mm3 (1.2-5.4) 08/09/19 03:35 [place] # 0.5 K/mm3 (0.0-0.8) 08/09/19 03:35 Eos # 0.2 K/mm3 (0.0-0.4) 08/09/19 03:35 Baso # 0.1 K/mm3 (0.0-0.1) 08/09/19 03:35 Seg Neutrophils % 62.3 % (40.0-70.0) 08/09/19 03:35 Seg Neutrophils # 5.9 K/mm3 (1.8-7.7) 08/09/19 03:35 PT 14.3 Sec. (12.2-14.9) 08/07/19 16:56 INR 1.14 (0.87-1.13) H 08/07/19 16:56 APTT 24.5 Sec. (24.2-36.6) 08/07/19 16:56 Sodium 151 mmol/L (137-145) H 08/09/19 03:35 Potassium 4.8 mmol/L (3.6-5.0) 08/09/19 03:35 Chloride 123.5 mmol/L (98-107) H 08/09/19 03:35 Carbon Dioxide 17 mmol/L (22-30) L 08/09/19 03:35 15 mmol/L 08/09/19 03:35 BUN 75 mg/dL (7-17) H 08/09/19 03:35 1.3 mg/dL (0.7-1.2) H 08/09/19 03:35 Estimated GFR 39 ml/min 08/09/19 03:35 58 % 08/09/19 03:35 Glucose 125 mg/dL (65-100) H 08/09/19 03:35 POC Glucose 260 (70-105) H 08/09/19 16:46 8.4 % (4-6) H 08/08/19 04:53 Calcium 9.1 mg/dL (8.4-10.2) 08/09/19 03:35 0.20 mg/dL (0.1-1.2) 08/09/19 03:35 AST 31 units/L (5-40) 08/09/19 03:35 ALT 18 units/L (7-56) 08/09/19 03:35 94 units/L (35-129) 08/09/19 03:35 < 0.010 ng/mL (0.00-0.029) 08/07/19 20:41 NT-Pro-B Natriuret Pep 937.1 pg/mL (0-900) H 08/07/19 16:56 6.5 g/dL (6.3-8.2) 08/09/19 03:35 3.4 g/dL (3.9-5) L 08/09/19 03:35 1.1 % 08/09/19 03:35 Yellow (Yellow) 08/07/19 16:02 Turbid (Clear) 08/07/19 16:02 8.0 (5.0-7.0) H 08/07/19 16:02 Ur Specific [place] 1.013 (1.003-1.030) 08/07/19 16:02 >500 mg/dL (Negative) 08/07/19 16:02 Neg mg/dL (Negative) 08/07/19 16:02 Tr mg/dL (Negative) 08/07/19 16:02 Neg (Negative) 08/07/19 16:02 Neg (Negative) 08/07/19 16:02 Neg (Negative) 08/07/19 16:02 < 2.0 mg/dL (<2.0) 08/07/19 16:02 Ur Leukocyte Esterase Mod (Negative) 08/07/19 16:02 133.0 /HPF (0.0-6.0) H 08/07/19 16:02 9.0 /HPF (0.0-6.0) 08/07/19 16:02 U Epithel Cells (Auto) 2.0 /HPF (0-13.0) 08/07/19 16:02 4+ /HPF (Negative) 08/07/19 16:02 3+ /HPF 08/07/19 16:02 Hyaline Casts 8 /LPF 08/07/19 16:02 3+ /HPF 08/07/19 16:02 3+ /HPF 08/07/19 16:02 17.2 mg/dL (0.1-20.0) 08/09/19 06:57 96 mmol/L 08/09/19 06:57 87.6 mmolL (110-250) L 08/09/19 06:57 Active Medications - Current Medications Current Medications: Generic Name Dose Route Start Last Admin Trade Name Freq PRN Reason Stop Dose Admin Acetaminophen 650 mg 08/08/19 00:53 Tylenol PO Q4H PRN Pain MILD(1-3)/Fever >100.5/[place] Famotidine 20 mg 08/08/19 10:00 08/09/19 09:22 Pepcid PO 20 mg QAM SHEL[place] Administration Heparin Sodium (Porcine) 5,000 unit 08/08/19 01:15 08/09/19 09:22 Heparin SUB-Q 5,000 unit Q12HR SHE[place] Administration Hydromorphone HCl 0.5 mg 08/08/19 00:53 Dilaudid IV Q3H PRN Pain , Severe (7-10) Ceftriaxone Sodium 1 gm in 50 mls @ 100 mls/hr 08/08/19 10:00 08/09/19 09:20 Rocephin/Ns 1 Gm/50 Ml IV 100 mls/hr Q24HR SHELTON Administration Protocol Dextrose 1,000 mls @ 75 mls/hr 08/09/19 10:00 08/09/19 09:27 D5w IV 75 mls/hr DIRECT SHELTON Administration Insulin Human Lispro 0 unit 08/08/19 07:30 08/09/19 17:25 Humalog SUB-Q 4 unit ACHS SHELTON Administration Protocol Metoclopramide HCl 5 mg 08/08/19 00:53 Reglan IV Q6H PRN Nausea And Vomiting Ondansetron HCl 4 mg 08/08/19 00:53 Zofran IV Q8H PRN Nausea And Vomiting Oxycodone/Acetaminophen 1 tab 08/08/19 00:53 Percocet 5/325 PO Q6H PRN Pain, Moderate (4-6) Sodium Chloride 10 ml 08/08/19 10:00 08/09/19 09:22 Sodium Chloride Flush Syringe 10 Ml IV 10 ml BID SEHLTON Administration Sodium Chloride 10 ml 08/08/19 00:53 08/08/19 01:58 Sodium Chloride Flush Syringe 10 Ml IV 10 ml PRN PRN Administration LINE FLUSH Nutrition/Malnutrition Assess - Dietary Evaluation Nutrition/Malnutrition Findings: Nutrition Notes Start: 08/08/19 10:23 Freq: Status: Active Protocol: Document 08/08/19 10:24 PS (Rec: 08/08/19 10:47 PS [id number]) Co-Sign 08/08/19 10:24 LP Nutrition Notes 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 2.2 BUN 101 K 5.5 ProBNP 937.1 Ca 10.3 Pertinent Medications Reviewed Height 5 ft 1 in Weight 68.039 kg [place] Body Weight (kg) 47.72 BMI 28.3 Intake Prior to Admission Poor Weight change and time frame 41 kg lost in 3 years. 37% wt. loss in 3 years. Weight Status Overweight Subjective/Other Information Nurse consult for difficulty chewing. Pt. has not been eating well due to no appetite for about 1 week. Pt. daughter states she would try to feed her, but would only take small bites and not eat all of it. Pt. experiences difficulty in chewing. Pt. drinks glucerna at home daily. Pt. had no recent wt loss, but wt gain, possibly due to uncontrolled diabetes. Pt. daughter states her wt. was 109 kg in 2016. Currently 68. 039 kg. No physical signs of malnutrition. Burn Absent Trauma Absent Minimum of two criteria No #1 Nutrition Diagnosis Inadequate energy intake Etiology difficulty chewing and no appetite As Evidenced by Signs and Symptoms decrease PO intake for a week Is patient on ventilator? No Is Patient Ambulatory and/or Out of Bed Yes REE-([facility]-ambulatory/OOB) [ 1355.601 NUTR.MSJOOB] Calculation Used for Recommendations [facility] Additional Notes Protein: 68-82 g (1-1.2g/kg) Fluids: 1355 ml (1ml/kcal) Nutrition Intervention Change Diet Order: Mechanical Soft Cardiac Consistent Carb Add Supplement/Snack (indicate name/kcal Glucerna (chocolate and /protein ) vanilla) BID Provides kCal: 440 Provides Protein (gm) 20 Goal #1 Meet 80% energy/protein needs. Anticipated Discharge Needs: Mechanical Soft Cardiac Consistent diet and ONS BID Follow-Up By: 08/12/19 Additional Comments Follow up for energy/protein intakes
[2019-08-10 05:54] LABS: Calcium 8.5 mg/dL (8.4-10.2)
[2019-08-10] MEDS: INSULIN LISPRO 100 UNIT/ML SUB-Q SCH ×3 (08:26→18:02)
--- NOTE | 2019-08-10 10:06 | Progress Note ---
Assessment and Plan - Patient Problems (1) Acute renal failure Current Visit: Yes Status: Acute Plan to address problem: renal function improved on IVF. Ensure that antibiotics are dosed appropriately for decreased renal function. (2) Hyperkalemia Current Visit: No Status: Acute Plan to address problem: resolved (3) UTI (lower urinary tract infection) Current Visit: Yes Status: Acute Plan to address problem: Antibiotics per primary team. (4) Hypertensive chronic kidney disease with stage 1 through stage 4 chronic kidney disease, or unspecified chronic kidney disease Current Visit: Yes Status: Chronic Plan to address problem: Monitor blood pressures. Would recommend holding benazepril in the setting of TUNG and hyperkalemia. 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 (6) Hypernatremia Current Visit: Yes Status: Acute Plan to address problem: na improved on D5W cont at 50ml/hr until po intake/hydration normalized Subjective Date of service: 08/10/19 Principal diagnosis: TUNG Interval history: Patient awake, alert in NAD Objective - Vital Signs Vital signs: Vital Signs - 12hr 08/10/19 08/10/19 02:37 07:44 Temperature 97.8 F 97.8 F Pulse Rate 60 63 Respiratory 16 20 Rate Blood Pressure 142/61 126/47 O2 Sat by Pulse 97 98 Oximetry - General Appearance General appearance: well-developed, well-nourished, appears stated age EENT: ATNC, PERRL, mucous membranes dry Neck: no JVD Respiratory: Present: Clear to Ascultation Cardiology: regular, S1S2 Gastrointestinal: normoactive bowel sounds Integumentary: no rash Neurologic: no focal deficit, alert and oriented x3, strength 5/5, CN 3-12 intact Psychiatric: mood/affect appropriate - Lab 08/09/19 03:35 08/10/19 04:38 Most recent lab results Calcium 8.5 mg/dL (8.4-10.2) 08/10/19 04:38 17.2 mg/dL (0.1-20.0) 08/09/19 06:57 96 mmol/L 08/09/19 06:57 Medications & Allergies - Medications Allergies/Adverse Reactions: Allergies No Known Allergies Allergy (Verified 01/01/18 18:43) Home Medications: Home Medications Medication Instructions Recorded Confirmed Last Taken Type Benazepril HCl [Lotensin] 20 mg PO DAILY 01/02/18 08/07/19 08/07/19 History Glimepiride [Amaryl] 4 mg PO QAM 01/02/18 08/07/19 08/07/19 History Active Medications: Generic Name Dose Route Start Last Admin Trade Name Freq PRN Reason Stop Dose Admin Acetaminophen 650 mg 08/08/19 00:53 Tylenol PO Q4H PRN Pain MILD(1-3)/Fever >100.5/LARSON Famotidine 20 mg 08/08/19 10:00 08/09/19 09:22 Pepcid PO 20 mg QAM SHELTON Administration Heparin Sodium (Porcine) 5,000 unit 08/08/19 01:15 08/09/19 21:12 Heparin SUB-Q 5,000 unit Q12HR SHELTON Administration Hydromorphone HCl 0.5 mg 08/08/19 00:53 Dilaudid IV Q3H PRN Pain , Severe (7-10) Ceftriaxone Sodium 1 gm in 50 mls @ 100 mls/hr 08/08/19 10:00 08/09/19 09:20 Rocephin/Ns 1 Gm/50 Ml IV 100 mls/hr Q24HR SHELTON Administration Protocol Dextrose 1,000 mls @ 50 mls/hr 08/09/19 10:00 08/09/19 23:15 D5w IV 75 mls/hr DIRECT SHELTON Administration Insulin Human Lispro 0 unit 08/08/19 07:30 08/10/19 08:26 Humalog SUB-Q 2 unit ACHS SHELTON Administration Protocol Metoclopramide HCl 5 mg 08/08/19 00:53 Reglan IV Q6H PRN Nausea And Vomiting Ondansetron HCl 4 mg 08/08/19 00:53 Zofran IV Q8H PRN Nausea And Vomiting Oxycodone/Acetaminophen 1 tab 08/08/19 00:53 Percocet 5/325 PO Q6H PRN Pain, Moderate (4-6) Sodium Chloride 10 ml 08/08/19 10:00 08/09/19 21:10 Sodium Chloride Flush Syringe 10 Ml IV 10 ml BID SHELTON Administration Sodium Chloride 10 ml 08/08/19 00:53 08/08/19 01:58 Sodium Chloride Flush Syringe 10 Ml IV 10 ml PRN PRN Administration LINE FLUSH
[2019-08-10] MEDS: HEPARIN 5,000 UNIT/1 ML VIAL SUB-Q SCH (10:26)
[2019-08-10] MEDS: cefTRIAXone/NS 1 GM/50 ML 1 GM/50 ML BAG IV SCH (10:26)
[2019-08-10] MEDS: FAMOTIDINE 20 MG TAB PO SCH (10:26)
[2019-08-10] MEDS: DEXTROSE 5% IN WATER 1,000 ML IV SCH (10:33)
--- NOTE | 2019-08-10 14:33 | Progress Note ---
Hospitalist Physical - Constitutional Vitals: Temp Pulse Resp BP Pulse Ox 98.0 F 76 20 133/54 96 08/10/19 13:07 08/10/19 13:07 08/10/19 13:07 08/10/19 13:07 08/10/19 13:07 General appearance: Present: no acute distress, cachectic, other (frail) Results - Labs CBC & Chem 7: 08/09/19 03:35 08/10/19 04:38 Labs: Laboratory Last Values WBC 9.4 K/mm3 (4.5-11.0) 08/09/19 03:35 RBC 4.21 M/mm3 (3.65-5.03) 08/09/19 03:35 Hgb 11.6 gm/dl (10.1-14.3) 08/09/19 03:35 Hct 36.3 % (30.3-42.9) 08/09/19 03:35 MCV 86 fl (79-97) 08/09/19 03:35 MCH 28 pg (28-32) 08/09/19 03:35 MCHC 32 % (30-34) 08/09/19 03:35 RDW 16.4 % (13.2-15.2) H 08/09/19 03:35 Plt Count 247 K/mm3 (140-440) 08/09/19 03:35 Lymph % (Auto) 29.8 % (13.4-35.0) 08/09/19 03:35 [place] % (Auto) 5.1 % (0.0-7.3) 08/09/19 03:35 Eos % (Auto) 2.1 % (0.0-4.3) 08/09/19 03:35 Baso % (Auto) 0.7 % (0.0-1.8) 08/09/19 03:35 Lymph # 2.8 K/mm3 (1.2-5.4) 08/09/19 03:35 [place] # 0.5 K/mm3 (0.0-0.8) 08/09/19 03:35 Eos # 0.2 K/mm3 (0.0-0.4) 08/09/19 03:35 Baso # 0.1 K/mm3 (0.0-0.1) 08/09/19 03:35 Seg Neutrophils % 62.3 % (40.0-70.0) 08/09/19 03:35 Seg Neutrophils # 5.9 K/mm3 (1.8-7.7) 08/09/19 03:35 PT 14.3 Sec. (12.2-14.9) 08/07/19 16:56 INR 1.14 (0.87-1.13) H 08/07/19 16:56 APTT 24.5 Sec. (24.2-36.6) 08/07/19 16:56 Sodium 142 mmol/L (137-145) D 08/10/19 04:38 Potassium 4.3 mmol/L (3.6-5.0) 08/10/19 04:38 Chloride 113.0 mmol/L (98-107) H 08/10/19 04:38 Carbon Dioxide 20 mmol/L (22-30) L 08/10/19 04:38 13 mmol/L 08/10/19 04:38 BUN 50 mg/dL (7-17) H 08/10/19 04:38 1.1 mg/dL (0.7-1.2) 08/10/19 04:38 Estimated GFR 47 ml/min 08/10/19 04:38 45 % 08/10/19 04:38 Glucose 150 mg/dL (65-100) H 08/10/19 04:38 POC Glucose 168 (70-105) H 08/10/19 11:39 8.4 % (4-6) H 08/08/19 04:53 Calcium 8.5 mg/dL (8.4-10.2) 08/10/19 04:38 0.20 mg/dL (0.1-1.2) 08/09/19 03:35 AST 31 units/L (5-40) 08/09/19 03:35 ALT 18 units/L (7-56) 08/09/19 03:35 94 units/L (35-129) 08/09/19 03:35 < 0.010 ng/mL (0.00-0.029) 08/07/19 20:41 NT-Pro-B Natriuret Pep 937.1 pg/mL (0-900) H 08/07/19 16:56 6.5 g/dL (6.3-8.2) 08/09/19 03:35 3.4 g/dL (3.9-5) L 08/09/19 03:35 1.1 % 08/09/19 03:35 Yellow (Yellow) 08/07/19 16:02 Turbid (Clear) 08/07/19 16:02 8.0 (5.0-7.0) H 08/07/19 16:02 Ur Specific [place] 1.013 (1.003-1.030) 08/07/19 16:02 >500 mg/dL (Negative) 08/07/19 16:02 Neg mg/dL (Negative) 08/07/19 16:02 Tr mg/dL (Negative) 08/07/19 16:02 Neg (Negative) 08/07/19 16:02 Neg (Negative) 08/07/19 16:02 Neg (Negative) 08/07/19 16:02 < 2.0 mg/dL (<2.0) 08/07/19 16:02 Ur Leukocyte Esterase Mod (Negative) 08/07/19 16:02 133.0 /HPF (0.0-6.0) H 08/07/19 16:02 9.0 /HPF (0.0-6.0) 08/07/19 16:02 U Epithel Cells (Auto) 2.0 /HPF (0-13.0) 08/07/19 16:02 4+ /HPF (Negative) 08/07/19 16:02 3+ /HPF 08/07/19 16:02 Hyaline Casts 8 /LPF 08/07/19 16:02 3+ /HPF 08/07/19 16:02 3+ /HPF 08/07/19 16:02 17.2 mg/dL (0.1-20.0) 08/09/19 06:57 96 mmol/L 08/09/19 06:57 87.6 mmolL (110-250) L 08/09/19 06:57 Active Medications - Current Medications Current Medications: Generic Name Dose Route Start Last Admin Trade Name Freq PRN Reason Stop Dose Admin Acetaminophen 650 mg 08/08/19 00:53 Tylenol PO Q4H PRN Pain MILD(1-3)/Fever >100.5/LARSON Famotidine 20 mg 08/08/19 10:00 08/10/19 10:26 Pepcid PO 20 mg QAM SHELTON Administration Heparin Sodium (Porcine) 5,000 unit 08/08/19 01:15 08/10/19 10:26 Heparin SUB-Q 5,000 unit Q12HR SHELTON Administration Hydromorphone HCl 0.5 mg 08/08/19 00:53 Dilaudid IV Q3H PRN Pain , Severe (7-10) Ceftriaxone Sodium 1 gm in 50 mls @ 100 mls/hr 08/08/19 10:00 08/10/19 12:01 Rocephin/Ns 1 Gm/50 Ml IV Infused Q24HR SHELTON Infusion Protocol Dextrose 1,000 mls @ 50 mls/hr 08/09/19 10:00 08/10/19 10:33 D5w IV 75 mls/hr DIRECT SHELTON Administration Insulin Human Lispro 0 unit 08/08/19 07:30 08/10/19 12:02 Humalog SUB-Q 2 unit ACHS SHELTON Administration Protocol Metoclopramide HCl 5 mg 08/08/19 00:53 Reglan IV Q6H PRN Nausea And Vomiting Ondansetron HCl 4 mg 08/08/19 00:53 Zofran IV Q8H PRN Nausea And Vomiting Oxycodone/Acetaminophen 1 tab 08/08/19 00:53 Percocet 5/325 PO Q6H PRN Pain, Moderate (4-6) Sodium Chloride 10 ml 08/08/19 10:00 08/10/19 10:27 Sodium Chloride Flush Syringe 10 Ml IV 10 ml BID SHELTON Administration Sodium Chloride 10 ml 08/08/19 00:53 08/08/19 01:58 Sodium Chloride Flush Syringe 10 Ml IV 10 ml PRN PRN Administration LINE FLUSH Nutrition/Malnutrition Assess - Dietary Evaluation Nutrition/Malnutrition Findings: Nutrition Notes Start: 08/08/19 10:23 Freq: Status: Active Protocol: Document 08/08/19 10:24 PS (Rec: 08/08/19 10:47 PS [id number]) Co-Sign 08/08/19 10:24 LP Nutrition Notes Need for Assessment generated from: press catcher Initial or Follow up Assessment Current Diagnosis Acute Kidney Injury,Diabetes, Hypertension Other Pertinent Diagnosis Peptic Ulcer Current Diet Cardiac/ Consistent Carbohydrate Labs/Tests 08/08: A1C 8.4 08/07: POC Glu 219 Glu 305 Creat. 2.2 BUN 101 K 5.5 ProBNP 937.1 Ca 10.3 Pertinent Medications Reviewed Height 5 ft 1 in Weight 68.039 kg [place] Body Weight (kg) 47.72 BMI 28.3 Intake Prior to Admission Poor Weight change and time frame 41 kg lost in 3 years. 37% wt. loss in 3 years. Weight Status Overweight Subjective/Other Information Nurse consult for difficulty chewing. Pt. has not been eating well due to no appetite for about 1 week. Pt. daughter states she would try to feed her, but would only take small bites and not eat all of it. Pt. experiences difficulty in chewing. Pt. drinks glucerna at home daily. Pt. had no recent wt loss, but wt gain, possibly due to uncontrolled diabetes. Pt. daughter states her wt. was 109 kg in 2015. Currently 68. 039 kg. No physical signs of malnutrition. Burn Absent Trauma Absent Minimum of two criteria No #1 Nutrition Diagnosis Inadequate energy intake Etiology difficulty chewing and no appetite As Evidenced by Signs and Symptoms decrease PO intake for a week Is patient on ventilator? No Is Patient Ambulatory and/or Out of Bed Yes REE-([facility]-ambulatory/OOB) [ 1355.601 [id number]] Calculation Used for Recommendations [facility] Additional Notes Protein: 68-82 g (1-1.2g/kg) Fluids: 1355 ml (1ml/kcal) Nutrition Intervention Change Diet Order: Mechanical Soft Cardiac Consistent Carb Add Supplement/Snack (indicate name/kcal Glucerna (chocolate and /protein ) vanilla) BID Provides kCal: 440 Provides Protein (gm) 20 Goal #1 Meet 80% energy/protein needs. Anticipated Discharge Needs: Mechanical Soft Cardiac Consistent diet and ONS BID Follow-Up By: 08/12/19 Additional Comments Follow up for energy/protein intakes
--- NOTE | 2019-08-10 14:37 | Discharge Summary ---
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 Evaluated by nephrology,managed with emperic antibiotics,IV fluids Symptoms resolved,Today patient s comfortable,no new complants,vtal signs stable,physical exam is unremarkable Cleared for discharge wth HHS Stable at discharge Discharge Diagnosis: --Urinary tract infection; empiric antibiotics Follow cultures, ID evaluation if needed --Acute kidney injury; vasomotor nephropathy mild improvement, Gentle hydration, monitor renal function, avoid nephrotoxins, nephrology following --Metabolc Encephalopathy:due to UTI and TUNG improved --Failure to thrive; multifactorial Nutrition consult, dietary supplements, diet as tolerated --Type 2 diabetes mellitus; Accu-Chek sliding scale coverage ADA diet, insulin as needed -- hypertension; moderate control Continue current antihypertensives and when necessary medications --DVT prophylaxis; Lovenox --Full CODE STATUS Stable at discharge Disposition: DC/[place]-06 HOME [facility] Time spent for discharge: 32 min Core Measure Documentation - Palliative Care Palliative Care/ Comfort Measures: Not Applicable - Core Measures Any of the following diagnoses?: none Exam - Constitutional Vitals: Temp Pulse Resp BP Pulse Ox 98.0 F 76 20 133/54 96 08/10/19 13:07 08/10/19 13:07 08/10/19 13:07 08/10/19 13:07 08/10/19 13:07 General appearance: Present: no acute distress, well-nourished - EENT Eyes: Present: PERRL, EOM intact - Neck Neck: Present: supple, normal ROM - Respiratory Respiratory effort: normal Respiratory: bilateral: diminished, negative: rales, rhonchi, wheezing - Cardiovascular Rhythm: regular Heart Sounds: Present: S1 & S2 - Extremities Extremities: no ischemia, No edema - Abdominal General gastrointestinal: Present: soft, non-tender, non-distended, normal bowel sounds - Integumentary Integumentary: Present: clear, warm - Musculoskeletal Musculoskeletal: strength equal bilaterally - Psychiatric Psychiatric: appropriate mood/affect, cooperative - Neurologic Neurologic: moves all extremities Plan Activity: advance as tolerated, fall precautions Diet: other (Mechanical soft/puree diet as tolerated) Additional Instructions: Fall precautions. Aspiration precautions. Advised pure diet/mechanical soft diet as tolerated. Advised nutrition supplements ensure/Glucerna/boost 3 times a day. Repeat renal ultrasound in 3 months, to be followed by nephrology. Use diabetic medication Glimiperide after cheking with PMD. Patient's blood sugars are 200 and less than 200 during hospital stay Follow up with: MICHAEL BRANHAMSATSOP MD SANJAY [Referring] - 3-5 Days KO KING DO [Staff Physician] - 7 Days Prescriptions: cefUROXime [Ceftin] 250 mg PO Q12H #10 tablet Famotidine [Pepcid] 20 mg PO QAM #30 tablet
[2019-08-10 20:24] VITALS: BP 116/48
== END 2019-08-10 20:33 | disposition home health service (06) | DRG 640 ==
LOC: ED 14:23 → 2B-ACE 18:25
PROVIDERS: ADMIT Internal Medicine; ATTEND Internal Medicine
DX: E87.5 Hyperkalemia (principal); N17.0 Acute kidney failure with tubular necrosis; N39.0 Urinary tract infection, site not specified; E87.0 Hyperosmolality and hypernatremia; F03.90 Unspecified dementia, unspecified severity, without behavioral disturbance, psychotic disturbance, mood disturbance, and anxiety; N18.3 Chronic kidney disease, stage 3 (moderate); E11.22 Type 2 diabetes mellitus with diabetic chronic kidney disease; I12.9 Hypertensive chronic kidney disease with stage 1 through stage 4 chronic kidney disease, or unspecified chronic kidney disease; E86.0 Dehydration; R62.7 Adult failure to thrive; Z87.442 Personal history of urinary calculi; Z82.49 Family history of ischemic heart disease and other diseases of the circulatory system; Z79.84 Long term (current) use of oral hypoglycemic drugs; Z68.28 Body mass index [BMI] 28.0-28.9, adult
CPT/HCPCS: 36415; 70450; 71045; 76770; 80048; 80053; 81001; 82436; 82570; 82962; 83036; 83880; 84300; 84484; 85025; 85610; 85730; 87040; 93005; 93010; 96361; 96365; 96375; G0378; J0696; J1644; J1815; J2405; J7030; J7070

== ENCOUNTER 2019-11-21 15:31 | Emergency (ER) | payer MEDICARE ==
[2019-11-21] MEDS ORDERED: ONDANSETRON 4 MG/2 ML INJ IV ONE (15:52)
[2019-11-21] MEDS ORDERED: SODIUM CHLORIDE 0.9% 1000 ML 500 ML IV ONE (15:52)
--- NOTE | 2019-11-21 16:06 | Emergency Department Report ---
ED General Adult HPI - General Chief complaint: Nausea/Vomiting/Diarrhea Stated complaint: GENERAL WEAKNESS Time Seen by Provider: 11/21/19 15:46 Source: family, EMS Mode of arrival: Stretcher Limitations: Other - History of Present Illness Initial comments: Patient presents to the emergency department with a chief complaint of nausea and vomiting. Patient is a 89-year-old female with past medical history significant for diabetes and dementia. Per the patient's daughter this morning her mom had to 3 episodes of vomiting without diarrhea. Patient denies any chest pain, shortness breath, or abdominal pain. The patient's daughter is concerned that her mother might be dehydrated or have a UTI. -: Sudden Severity scale (0 -10): 0 Consistency: now resolved Improves with: none Worsens with: none Associated Symptoms: denies other symptoms Treatments Prior to Arrival: none - Related Data Home Medications Medication Instructions Recorded Confirmed Last Taken Glimepiride [Amaryl] 4 mg PO QAM 01/02/18 08/07/19 08/07/19 Previous Rx's Medication Instructions Recorded Last Taken Type Famotidine [Pepcid] 20 mg PO QAM #30 tablet 08/10/19 Unknown Rx cefUROXime [Ceftin] 250 mg PO Q12H #10 tablet 08/10/19 Unknown Rx Ondansetron [Zofran Odt] 4 mg PO Q4HR PRN #20 tab.rapdis 11/21/19 Unknown Rx Sulfamethoxazole/Trimethoprim 1 each PO BID #10 tablet 11/21/19 Unknown Rx [Bactrim DS TAB] Allergies Allergy/AdvReac Type Severity Reaction Status Date / Time No Known Allergies Allergy Verified 01/01/18 18:43 ED Review of Systems ROS: Stated complaint: GENERAL WEAKNESS Other details as noted in HPI Constitutional: denies: chills, fever Eyes: denies: eye pain, eye discharge, vision change ENT: denies: ear pain, throat pain Respiratory: denies: cough, shortness of breath, wheezing Cardiovascular: denies: chest pain, palpitations Endocrine: no symptoms reported Gastrointestinal: nausea, vomiting. denies: abdominal pain, diarrhea Genitourinary: denies: urgency, dysuria, discharge Musculoskeletal: denies: back pain, joint swelling, arthralgia Skin: denies: rash, lesions Neurological: denies: headache, weakness, paresthesias Psychiatric: denies: anxiety, depression Hematological/Lymphatic: denies: easy bleeding, easy bruising ED Past Medical Hx - Past Medical History Previous Medical History?: Yes Hx Hypertension: Yes Hx Diabetes: Yes Hx Arthritis: Yes Hx Kidney Stones: Yes (X2 Surgeries) Hx Dementia: Yes Additional medical history: osteoporosis, peptic ulcer, prolapsed bladder - Surgical History Past Surgical History?: Yes Additional Surgical History: kidney stone surgery - Social History Smoking Status: Unknown if ever smoked Substance Use Type: None - Medications Home Medications: Home Medications Medication Instructions Recorded Confirmed Last Taken Type Glimepiride [Amaryl] 4 mg PO QAM 01/02/18 08/07/19 08/07/19 History Famotidine [Pepcid] 20 mg PO QAM #30 tablet 08/10/19 Unknown Rx cefUROXime [Ceftin] 250 mg PO Q12H #10 tablet 08/10/19 Unknown Rx Ondansetron [Zofran Odt] 4 mg PO Q4HR PRN #20 tab.rapdis 11/21/19 Unknown Rx Sulfamethoxazole/Trimethoprim 1 each PO BID #10 tablet 11/21/19 Unknown Rx [Bactrim DS TAB] ED Physical Exam - General Limitations: Other General appearance: alert, in no apparent distress - Head Head exam: Present: atraumatic, normocephalic - Eye Eye exam: Present: normal appearance - ENT ENT exam: Present: mucous membranes dry - Neck Neck exam: Present: normal inspection - Respiratory Respiratory exam: Present: normal lung sounds bilaterally. Absent: respiratory distress - Cardiovascular Cardiovascular Exam: Present: regular rate, normal rhythm. Absent: systolic murmur, diastolic murmur, rubs, gallop - GI/Abdominal GI/Abdominal exam: Present: soft, tenderness (diffusely tender to palpation), normal bowel sounds. Absent: distended - Extremities Exam Extremities exam: Present: normal inspection - Back Exam Back exam: Present: normal inspection - Neurological Exam Neurological exam: Present: alert, oriented X3, CN II-XII intact. Absent: motor sensory deficit - Psychiatric Psychiatric exam: Present: normal affect, normal mood - Skin Skin exam: Present: warm, dry, intact, normal color. Absent: rash ED Course Vital Signs 11/21/19 11/21/19 16:00 18:01 Temperature 98.1 F Pulse Rate 81 73 Respiratory 16 16 Rate Blood Pressure 135/58 147/49 [Left] O2 Sat by Pulse 99 95 Oximetry ED Medical Decision Making - Lab Data Result diagrams: 11/21/19 16:02 11/21/19 16:02 Lab Results 11/21/19 11/21/19 11/21/19 Range/Units 16:02 16:02 16:23 WBC 8.8 (4.5-11.0) K/mm3 RBC 3.89 (3.65-5.03) M/mm3 Hgb 11.7 (10.1-14.3) gm/dl Hct 32.6 (30.3-42.9) % MCV 84 (79-97) fl MCH 30 (28-32) pg MCHC 36 H (30-34) % RDW 14.1 (13.2-15.2) % Plt Count 289 (140-440) K/mm3 Lymph % (Auto) 24.8 (13.4-35.0) % [place] % (Auto) 5.8 (0.0-7.3) % Eos % (Auto) 2.7 (0.0-4.3) % Baso % (Auto) 0.6 (0.0-1.8) % Lymph # 2.2 (1.2-5.4) K/mm3 [place] # 0.5 (0.0-0.8) K/mm3 Eos # 0.2 (0.0-0.4) K/mm3 Baso # 0.1 (0.0-0.1) K/mm3 Seg Neutrophils % 66.1 (40.0-70.0) % Seg Neutrophils # 5.8 (1.8-7.7) K/mm3 Sodium 139 (137-145) mmol/L Potassium 4.0 (3.6-5.0) mmol/L Chloride 104.9 (98-107) mmol/L Carbon Dioxide 22 (22-30) mmol/L Anion Gap 16 mmol/L BUN 22 H (7-17) mg/dL Creatinine 0.8 (0.7-1.2) mg/dL Estimated GFR > 60 ml/min BUN/Creatinine Ratio 28 % Glucose 150 H (65-100) mg/dL Calcium 9.5 (8.4-10.2) mg/dL Total Bilirubin 0.30 (0.1-1.2) mg/dL AST 25 (5-40) units/L ALT 9 (7-56) units/L Alkaline Phosphatase 110 (35-129) units/L Total Protein 6.3 (6.3-8.2) g/dL Albumin 3.3 L (3.9-5) g/dL Albumin/Globulin Ratio 1.1 % Lipase 46 (13-60) units/L Urine Color Yellow (Yellow) Urine Turbidity Cloudy (Clear) Urine pH 6.0 (5.0-7.0) Ur Specific [place] 1.011 (1.003-1.030) Urine Protein <15 mg/dl (Negative) mg/dL Urine Glucose (UA) Neg (Negative) mg/dL Urine Ketones Neg (Negative) mg/dL Urine Blood Neg (Negative) Urine Nitrite Neg (Negative) Urine Bilirubin Neg (Negative) Urine Urobilinogen < 2.0 (<2.0) mg/dL Ur Leukocyte Esterase Lg (Negative) Urine WBC (Auto) 24.0 H (0.0-6.0) /HPF Urine RBC (Auto) 7.0 (0.0-6.0) /HPF U Epithel Cells (Auto) 10.0 (0-13.0) /HPF Urine Bacteria (Auto) 2+ (Negative) /HPF Urine Mucus Few /HPF - Medical Decision Making IV Abx given Discussed results with the patient's daughter Critical care attestation.: If time is entered above; I have spent that time in minutes in the direct care of this critically ill patient, excluding procedure time. ED Disposition Clinical Impression: UTI (urinary tract infection) Disposition: DC-01 TO HOME OR SELFCARE Is pt being admited?: No Does the pt Need Aspirin: No Condition: Stable Instructions: Urinary Tract Infection in Women (ED) Additional Instructions: return if worse Referrals: CHARMAINE MAZARIEGOS MD [Primary Care Provider] - 3-5 Days Time of Disposition: 18:53
[2019-11-21 16:25] LABS: Basophils # (Auto) 0.1 K/mm3 (0.0-0.1); Basophils % (Auto) 0.6 % (0.0-1.8); Eosinophils # (Auto) 0.2 K/mm3 (0.0-0.4); Eosinophils % (Auto) 2.7 % (0.0-4.3); Hematocrit 32.6 % (30.3-42.9); Hemoglobin 11.7 gm/dl (10.1-14.3); Lymphocytes # (Auto) 2.2 K/mm3 (1.2-5.4); Lymphocytes % (Auto) 24.8 % (13.4-35.0); Mean Corpuscular HGB Conc 36 % (30-34); Mean Corpuscular Volume 84 fl (79-97); Monocytes # (Auto) 0.5 K/mm3 (0.0-0.8); Monocytes % (Auto) 5.8 % (0.0-7.3); Platelet Count 289 K/mm3 (140-440); Red Blood Count 3.89 M/mm3 (3.65-5.03); Red Cell Distribution Width 14.1 % (13.2-15.2)
[2019-11-21 16:45] LABS: Alanine Aminotransferase 9 units/L (7-56); Albumin 3.3 g/dL (3.9-5); BUN/Creatinine Ratio 28; Blood Urea Nitrogen 22 mg/dL (7-17); Calcium 9.5 mg/dL (8.4-10.2); Hemolysis Index 4
[2019-11-21 16:48] LABS: Bacteria,Urine 2+ /HPF (Negative); Bilirubin,Urine NEG (Negative); Blood,Urine NEG (Negative); Color,Urine Yellow (Yellow); Mucus,Urine FEW /HPF; Protein,Urine <15 mg/dL mg/dL (Negative); Urobilinogen,Urine < 2.0 mg/dL (<2.0)
--- NOTE | 2019-11-21 18:22 | Cat Scan Report ---
CT ABDOMEN AND PELVIS WITHOUT CONTRAST INDICATION / CLINICAL INFORMATION: nausea/vomiting. TECHNIQUE: Axial CT images were obtained through the abdomen and pelvis without IV contrast. All CT scans at our [facility] location are performed using CT dose reduction for ALARA by means of automated exposure control. COMPARISON: None available. FINDINGS: LOWER CHEST: No significant abnormality. Mild chronic changes are present LIVER: No significant abnormality. GALLBLADDER: Multiple calculi are present within the gallbladder BILE DUCTS: No significant abnormality. PANCREAS: No significant abnormality. SPLEEN: No significant abnormality. ADRENALS: No significant abnormality. RIGHT KIDNEY and URETER: Dilatation of the collecting system present without evidence of calculus in the course of the ureter. A small calculus is present within the collecting system LEFT KIDNEY and URETER: Dilatation of the collecting system present without evidence of calculus in t he course of the ureter STOMACH and SMALL BOWEL: No significant abnormality. COLON: Feces is present in the colon with a distended feces filled rectum questionable fecal impactio n APPENDIX: No significant abnormality. PERITONEUM: No free fluid. No free air. No fluid collection. LYMPH NODES: No significant adenopathy. AORTA and ARTERIES: No significant abnormality. IVC and VEINS: No significant abnormality. URINARY BLADDER: Marked urinary bladder distention. REPRODUCTIVE ORGANS: No significant abnormality. ADDITIONAL FINDINGS: None. SKELETAL SYSTEM: Bones are osteopenic. Mild compression fracture L3 and L5 vertebral bodies noted age difficult determine. IMPRESSION: 1. Marked urinary bladder distention 2. Bilateral hydronephrosis without definite calculi in the course of the ureters 3. Possible rectal impaction 4. Cholelithiasis Signer Name: Enrique Acosta MD Signed: 11/21/2019 6:18 PM Workstation Name: [id number]
[2019-11-21] MEDS ORDERED: cefTRIAXone/NS 1 GM/50 ML 1 GM/50 ML BAG IV ONE (18:26)
[2019-11-21 20:49] VITALS: BP 135/51
== END 2019-11-21 20:49 | disposition home or self-care (01) ==
LOC: ED 15:31
DX: N39.0 Urinary tract infection, site not specified (principal); I10 Essential (primary) hypertension; E11.9 Type 2 diabetes mellitus without complications; M19.90 Unspecified osteoarthritis, unspecified site; N20.0 Calculus of kidney; Z98.890 Other specified postprocedural states; Z79.899 Other long term (current) drug therapy
CPT/HCPCS: 36415; 74176; 80053; 81001; 83690; 85025; 87086; 96365; 96375; 99284; J0696; J2405; J7030